=== PATIENT | female | born 1995 | race Caucasian/White ===

== ENCOUNTER 2019-09-01 11:26 | Observation (INO) | payer OTHER, SELFPAY ==
--- NOTE | ~2019-09-01 | US_ITS ---
EXAMINATION: US OB follow up EXAM DATE: 09/01/2019 13:05 INDICATION: Cramping, vaginal bleeding. 2nd trimester. TECHNIQUE: Pelvic obstetrical transabdominal sonogram was performed by a technologist. There are mu ltiple grayscale and Doppler images available for interpretation. There are no earlier studies of th is gestation for comparison. FINDINGS: There is a single fetus identified in variable presentation with a heart rate of 148 beats per minute. The placenta is located in the anterior position. There is no sonographic evidence of re troplacental hemorrhage identified. Placental margin to internal cervical os distance is 4.1 cm. Ther e is subjectively expected amount of amniotic fluid. Along the inner surface of the placenta there is hypoechoic oblong-shaped region with several septati ons, most likely a venous vick. This measures 3.2 x 2.6 x 4.0 cm. BIOMETRIC DATA: Biparietal diameter (BPD): 4.1cm ----------------> 18 weeks 3 days. Head circumference (HC): 15.0 cm ----------------> 18 weeks 0 days. Abdominal circumference (AC): 12.6 cm ----------> 18 weeks 1 day. Femur length (FL): 2.6 cm --------------------------> 17 weeks 6 days. These measurements are concordant. HC/AC ratio is 1.19 (The 5th -- 95th percentile range is 1.08-1.27. IMPRESSION: 1. Single fetus in variable presentation with heart rate 148 beats per minute. 2. Hypoechoic region along the inner surface of placenta distorting its contour, most likely a venou s vick. Reviewed, dictated and finalized at location B. IMPRESSION: 1. Single fetus in variable presentation with heart rate 148 beats per minute. 2. Hypoechoic region along the inner surface of placenta distorting its contou r, most likely a venous vick.
[2019-09-01 12:03] VITALS: BP 105/62; PULSE 81
--- NOTE | 2019-09-01 12:17 | OBADM ---
This patient, Clarice Jerez, admitted to the OB room OB Post 116 for observation. Patient/family oriented to hospital policies and general routines including ID bracelet, bed and alarms, visiting hours, pain management, procedures, bathroom and other care routines, personal items, smoking policy, room service/diet, and visiting hours. Patient/Family are encouraged to report perceived risks to care and to ask questions if they do not understand what they are told or what they should do.
[2019-09-01 14:51] LABS: Add Urine Microscopic? NO; Appearance Urine Clear (Clear); Bilirubin Urine Negative (Negative); Blood Urine Negative (Negative); Color Urine Straw (Yellow); Glucose Urine UA Negative (Negative); Ketones Urine Negative (Negative); Leukocyte Esterase Ur Negative LEU/UL (Negative); Nitrate Urine Negative (Negative); Protein Urine Negative (Negative); Specific Grav Ur 1.015 (1.001-1.035); Urobilinogen Urine Negative mg/dL (<2.0)
--- NOTE | 2019-09-25 07:12 | P.DS_ITS ---
OB - DS: Summary OB Procedures : None OB Procedures Intrapartum: Spontaneous Vag Delivery OB Procedures: : None Time Spent with Patient Time attestation: Total time spent providing and/or coordinating discharge services: Discharge Plan Discharge Attending physician on discharge: Sung Dunn Discharging Clinician: Sung Dunn Patient Disposition: Home, Self-Care Activity: as tolerated Diet: regular Discharge Instructions: OB ANTEPARTUM DISCHARGE INSTRUCTIONS This information is given to help you properly care for yourself at home after your discharge from the hospital. Follow these instructions until your doctor tells you otherwise. DIET: Eat Three Well Balanced Meals per Day Drink at Least Eight 8-Ounce Glasses of Caffeine-Free Beverages Daily ACTIVITY: As Tolerated Additional Activity Instructions: RETURN TO LABOR AND DELIVERY IF YOU HAVE: Any Change In Baby's Normal Movement Pattern Any Leakage of Fluid More than 6 Contractions in an Hour Vaginal Bleeding Warning Signs of Pre-term Labor as per Handout Additional Reasons to Return to Labor and Delivery: Contractions may feel like abdominal pain, tightening, cramping, pressure, back ache, or thigh ache. OTHER INSTRUCTIONS: FOLLOW-UP CARE: Keep Next Scheduled Appointment To see in/on Valuables released to patient or family? N/A Medications from home returned to patient? N/A I Acknowledge Receipt of and Understand the Above Instructions IF YOU HAVE ANY QUESTIONS REGARDING THESE INSTRUCTIONS, PLEASE CALL [phone]. IF PROBLEMS ARISE, CALL YOUR PROVIDER. IF EMERGENCY CARE IS NEEDED, [facility] EMERGENCY ROOM IS AVAILABLE 24 HOURS A DAY. Stand Alone Forms: General Discharge Information Follow-up/Referrals: Sung Dunn MD [Physician] - Date of admission: 09/01/19 11:26 Primary Care Provider: CheliJayesh Admitting Provider: Sung Dunn Discharge Date/Time: 09/01/19 14:25 Attending physician on admission: Sung Dunn
--- NOTE | 2019-09-25 07:13 | P.PNOB_ITS ---
OB - Triage/Final Diagnosis Visit Information Reason for evaluation: threatened labor Evaluation Laboratory results: Laboratory Tests 09/01/19 14:20 Urine Color Straw Urine Appearance Clear Urine pH 6.0 Ur Specific [place] 1.015 Urine Protein Negative Urine Glucose (UA) Negative Urine Ketones Negative Ur Blood (Man) Negative Urine Nitrate Negative Urine Bilirubin Negative Urine Urobilinogen Negative Leukocyte Esterase Rfl Negative
== END 2019-09-01 14:25 | disposition home or self-care (01) ==
PROVIDERS: Admitting Provider Obstetrics & Gynecology; PCP Nurse Practitioner Family; Visit Provider Obstetrics & Gynecology
DX: O47.02 False labor before 37 completed weeks of gestation, second trimester (principal); Z3A.18 18 weeks gestation of pregnancy
CPT/HCPCS: 76816; 81003; G0378; G0379

== ENCOUNTER 2019-10-05 11:29 | Observation (INO) | payer OTHER, SELFPAY ==
[2019-10-05 12:02] VITALS: BP 105/64; PULSE 85; TEMP 37.3
[2019-10-05 12:05] VITALS: BMI 30.3
--- NOTE | 2019-10-05 12:05 | OBADM ---
This patient, Clarice Jerez, admitted to the OB room 113 at 1129 for observation for lower abdominal pressure/ cramping and back pain. Patient/family oriented to hospital policies and general routines including ID bracelet, bed and alarms, visiting hours, pain management, procedures, bathroom and other care routines, personal items, smoking policy, room service/diet, and visiting hours. Patient/Family are encouraged to report perceived risks to care and to ask questions if they do not understand what they are told or what they should do.
[2019-10-05 12:48] VITALS: TEMP 37.6
[2019-10-05 13:01] VITALS: BP 103/79; PULSE 95
[2019-10-05 13:01] LABS: Add Urine Microscopic? NO; Appearance Urine Clear (Clear); Bilirubin Urine Negative (Negative); Blood Urine Negative (Negative); Color Urine Straw (Yellow); Glucose Urine UA Negative (Negative); Ketones Urine Negative (Negative); Leukocyte Esterase Ur Negative LEU/UL (Negative); Nitrate Urine Negative (Negative); Protein Urine Negative (Negative); Specific Grav Ur 1.013 (1.001-1.035); Urobilinogen Urine Negative mg/dL (<2.0)
[2019-10-05 14:21] VITALS: RESP 18; TEMP 37.8
--- NOTE | 2019-10-12 12:41 | PM.OBTRLD ---
OB - Triage/Final Diagnosis Evaluation Laboratory results: Laboratory Tests 10/05/19 12:47 Urine Color Straw Urine Appearance Clear Urine pH 7.0 Ur Specific [place] 1.013 Urine Protein Negative Urine Glucose (UA) Negative Urine Ketones Negative Ur Blood (Man) Negative Urine Nitrate Negative Urine Bilirubin Negative Urine Urobilinogen Negative Leukocyte Esterase Rfl Negative Final Diagnosis (1) Abdominal pain affecting : Code(s): O26.899 - Other specified related conditions, unspecified trimester; R10.9 - Unspecified abdominal pain Status: Acute
== END 2019-10-05 15:25 | disposition home or self-care (01) ==
PROVIDERS: Admitting Provider Obstetrics & Gynecology; PCP Nurse Practitioner Family; Visit Provider Obstetrics & Gynecology
DX: O26.892 Other specified pregnancy related conditions, second trimester (principal); R10.2 Pelvic and perineal pain; M54.9 Dorsalgia, unspecified; Z3A.23 23 weeks gestation of pregnancy
CPT/HCPCS: 81003; G0378; G0379

== ENCOUNTER 2019-11-05 21:53 | Observation (INO) | payer OTHER, SELFPAY ==
[2019-11-05] VITALS (9 sets, daily range): BP systolic 93–119; BP diastolic 43–57; PULSE 80–97; TEMP 36.5; BMI 32.1
[2019-11-06] VITALS (12 sets, daily range): BP systolic 82–119; BP diastolic 40–66; PULSE 80–125; O2SAT 100
[2019-11-06] MEDS: TERBUTALINE SULFATE 1 MG/ML VIAL 0.25 MG SUB-Q (00:42)
[2019-11-06 00:58] LABS: Add Urine Microscopic? NO; Appearance Urine Clear (Clear); Bilirubin Urine Negative (Negative); Blood Urine Negative (Negative); Color Urine Straw (Yellow); Glucose Urine UA Negative (Negative); Ketones Urine Negative (Negative); Leukocyte Esterase Ur Negative LEU/UL (NEGATIVE); Nitrate Urine Negative (Negative); Protein Urine Negative (Negative); Urobilinogen Urine Negative mg/dL (<2.0)
--- NOTE | 2019-11-06 03:50 | OBADM ---
This patient, Clarice Jerez, admitted to the OB room OB Post 115 for observation. Patient/family oriented to hospital policies and general routines including ID bracelet, bed and alarms, visiting hours, pain management, procedures, bathroom and other care routines, personal items, smoking policy, room service/diet, and visiting hours. Patient/Family are encouraged to report perceived risks to care and to ask questions if they do not understand what they are told or what they should do.
--- NOTE | 2019-11-09 10:39 | P.PNOB_ITS ---
OB - Triage/Final Diagnosis Visit Information Reason for evaluation: threatened labor Evaluation Laboratory results: Laboratory Tests 11/06/19 00:48 Urine Color Straw Urine Appearance Clear Urine pH 7.0 Ur Specific [place] 1.010 Urine Protein Negative Urine Glucose (UA) Negative Urine Ketones Negative Ur Blood (Man) Negative Urine Nitrate Negative Urine Bilirubin Negative Urine Urobilinogen Negative Ur Leukocyte Esterase Negative
== END 2019-11-06 01:55 | disposition home or self-care (01) ==
PROVIDERS: Admitting Provider Obstetrics & Gynecology; PCP Nurse Practitioner Family; Visit Provider Obstetrics & Gynecology
DX: O47.02 False labor before 37 completed weeks of gestation, second trimester (principal); Z3A.27 27 weeks gestation of pregnancy
CPT/HCPCS: 81003; 87086; 96372; G0378; G0379; J3105

== ENCOUNTER 2019-11-29 21:24 | Outpatient (CLI) | payer OTHER, SELFPAY ==
[2019-11-29 21:33] VITALS: BP 115/65; PULSE 93
--- NOTE | 2019-11-30 13:31 | PM.OBTRLD ---
OB - Triage/Final Diagnosis Evaluation Vital signs: Vital Signs - 24 hr 11/29/19 21:33 Pulse Rate 93 Blood Pressure 115/65 Final Diagnosis (1) Fall (on) (from) other stairs and steps, initial encounter: Code(s): W10.8XXA - Fall (on) (from) other stairs and steps, initial encounter Status: Acute
== END 2019-11-29 22:09 | disposition home or self-care (01) ==
LOC: ANHOBPP 21:39 → ANHOBOP 12-01 09:10 → ANHOBPP 12-01 09:11
PROVIDERS: PCP Nurse Practitioner Family; Visit Provider Obstetrics & Gynecology
DX: O13.9 Gestational [pregnancy-induced] hypertension without significant proteinuria, unspecified trimester (principal); W10.8XXA Fall (on) (from) other stairs and steps, initial encounter
CPT/HCPCS: 59025; 99199; G0378; G0379

== ENCOUNTER 2019-12-26 13:59 | Observation (INO) | payer OTHER, SELFPAY ==
--- NOTE | 2019-12-26 15:59 | OBADM ---
This patient, Clarice Jerez, admitted to the OB room OB Post 116 for observation. Patient/family oriented to hospital policies and general routines including ID bracelet, bed and alarms, visiting hours, pain management, procedures, bathroom and other care routines, personal items, smoking policy, room service/diet, call light, and visiting hours. Patient/Family are encouraged to report perceived risks to care and to ask questions if they do not understand what they are told or what they should do.
--- NOTE | 2020-01-02 07:28 | PM.OBTRLD ---
OB - Triage/Final Diagnosis Visit Information Reason for evaluation: threatened labor
--- NOTE | 2020-01-03 12:31 | PM.OBTRLD ---
OB - Triage/Final Diagnosis Visit Information Reason for evaluation: threatened labor
== END 2019-12-26 15:45 | disposition home or self-care (01) ==
PROVIDERS: Admitting Provider Obstetrics & Gynecology; PCP Nurse Practitioner Family; Visit Provider Obstetrics & Gynecology
DX: O47.03 False labor before 37 completed weeks of gestation, third trimester (principal); Z3A.34 34 weeks gestation of pregnancy
CPT/HCPCS: 84112; G0378; G0379

== ENCOUNTER 2019-12-26 21:20 | Observation (INO) | payer OTHER, SELFPAY ==
--- NOTE | 2019-12-26 21:20 | OBADM ---
This patient, Clarice Jerez, admitted to the OB room Labor/Delivery/Recovery 106 for observation. Patient/family oriented to hospital policies and general routines including ID bracelet, bed and alarms, visiting hours, pain management, procedures, bathroom and other care routines, personal items, smoking policy, room service/diet, and visiting hours. Patient/Family are encouraged to report perceived risks to care and to ask questions if they do not understand what they are told or what they should do.
[2019-12-26 22:32] VITALS: BMI 33.5
[2019-12-26] MEDS: TERBUTALINE SULFATE 1 MG/ML VIAL 0.25 MG SUB-Q (23:09)
--- NOTE | 2019-12-30 08:55 | PM.OBTRLD ---
OB - Triage/Final Diagnosis Visit Information Reason for evaluation: threatened labor
--- NOTE | 2019-12-30 08:57 | PM.OBTRLD ---
OB - Triage/Final Diagnosis Visit Information Reason for evaluation: threatened labor
== END 2019-12-27 00:23 | disposition home or self-care (01) ==
PROVIDERS: Admitting Provider Obstetrics & Gynecology; PCP Nurse Practitioner Family; Visit Provider Obstetrics & Gynecology
DX: O47.9 False labor, unspecified (principal); Z3A.00 Weeks of gestation of pregnancy not specified
CPT/HCPCS: 96372; G0378; G0379; J3105

== ENCOUNTER 2020-01-24 04:40 | Inpatient (IN) | payer OTHER, SELFPAY ==
[2020-01-24] VITALS (123 sets, daily range): BP systolic 82–135; BP diastolic 39–102; PULSE 67–132; RESP 16–20; TEMP 36.4–37.4; O2SAT 98–100; BMI 33.7
--- NOTE | 2020-01-24 05:19 | LDADM ---
This patient, Clarice Jerez, was admitted to Labor/Delivery/Recovery 102 on 01/24/20 at 04:40. Plans for labor, pain management and were discussed with patient. Patient/family oriented to hospital policies and general routines including ID bracelet, bed and alarms, visiting hours, pain management, procedures, bathroom and other care routines, personal items, smoking policy, room service/diet and guest tray routines, infant security routines, and visiting hours. Patient/Family are encouraged to report perceived risks to care and to ask questions if they do not understand what they are told or what they should do. See OBIX for further documentation.
[2020-01-24 05:24] LABS: Basophils Percent Auto 0.5 % (0.2-1.2); Eosinophils Absolute Auto 0.1 K/mm3 (0-0.3); Eosinophils Percent Auto 1.7 % (0-4.4); Hematocrit 28.7 % (37.0-47.0); Hemoglobin 8.7 g/dL (12.0-15.0); Immature Granulocyte Absolute 0.07 K/mm3 (0.00-0.031); Immature Granulocyte Percent A 0.8 % (0-0.5); Lymphocytes Absolute Auto 2.88 K/mm3 (0.9-3.2); Lymphocytes Percent Auto 34.1 % (18.3-44.2); Mean Corpuscular HGB Conc 30.3 g/dl (32-36); Mean Corpuscular Hemoglobin 23.7 pg (26-34); Mean Corpuscular Volume 78.2 fl (80-100); Mean Platelet Volume 10.1 fl (7.4-10.4); Monocytes Absolute Auto 0.8 K/mm3 (0.1-0.6); Monocytes Percent Auto 9.7 % (2.6-8.5); Neutrophils Absolute Auto 4.5 K/mm3 (1.3-6.7); Neutrophils Percent Auto 53.2 % (45.5-73.1); Platelet Count Result 238 k/mm3 (150-375); Red Blood Count 3.67 M/mm3 (4.2-5.4); Red Cell Distribution Width 15.3 % (11.5-14.5); White Blood Count 8.4 K/mm3 (4.5-10.0)
[2020-01-24] MEDS: OXYTOCIN 30 UNITS/NS 500 ML 30 UNITS/500 ML BAG IV CONT (05:29)
[2020-01-24] MEDS: LACTATED RINGERS 1,000 ML 125 ML IV CONT ×2 (05:30→07:57)
[2020-01-24 06:03] LABS: Rapid Plasma Reagin Non-Reactive (NonReactive)
--- NOTE | 2020-01-24 06:36 | P.PNAN_ITS ---
Anes - Eval Pre Procedure Procedure: Labor epidural Date/Time: 01/24/20 06:36 Surgeon: Mona Preop Diagnosis: pain during labor Pre Op Diagnosis: Induction of Labor Patient Data Age: 24 Gender: F Height: 1.55 m Weight: 81 kg Last Vital Signs Temp 36.7 C 01/24/20 05:30 Pulse 97 01/24/20 05:37 BP 115/72 01/24/20 05:37 Allergies Allergy/AdvReac Type Severity Reaction Status Date / Time metoclopramide AdvReac Intermediate Confusion,H Verified 10/05/19 11:55 ALLUCINATIO NS Home Medications Medication Instructions Recorded Confirmed Type Gummies 2 tablet PO DAILY 10/05/19 01/24/20 History albuterol sulfate [Ventolin HFA] 2 puff INHALATION Q4H PRN 10/05/19 01/24/20 History ondansetron HCl 4 mg PO Q6H PRN 10/05/19 01/24/20 History Laboratory Tests 01/24/20 01/24/20 01/24/20 05:15 05:15 05:15 WBC 8.4 K/mm3 K/mm3 (4.5-10.0) RBC 3.67 M/mm3 L M/mm3 (4.2-5.4) Hgb 8.7 g/dL L g/dL (12.0-15.0) Hct 28.7 % L % (37.0-47.0) MCV 78.2 fl L fl (80-100) MCH 23.7 pg L pg (26-34) MCHC 30.3 g/dl L g/dl (32-36) RDW 15.3 % H % (11.5-14.5) Plt Count 238 k/mm3 k/mm3 (150-375) MPV 10.1 fl fl (7.4-10.4) Immature Gran % (Auto) 0.8 % H % (0-0.5) Neut % (Auto) 53.2 % % (45.5-73.1) Lymph % (Auto) 34.1 % % (18.3-44.2) [place] % (Auto) 9.7 % H % (2.6-8.5) Eos % (Auto) 1.7 % % (0-4.4) Baso % (Auto) 0.5 % % (0.2-1.2) Lymph # (Auto) 2.88 K/mm3 K/mm3 (0.9-3.2) [place] # (Auto) 0.8 K/mm3 H K/mm3 (0.1-0.6) Eos # (Auto) 0.1 K/mm3 K/mm3 (0-0.3) Baso # (Auto) 0.0 K/mm3 K/mm3 (0.0-0.1) Abs Immat Gran (auto) 0.07 K/mm3 H K/mm3 (0.00-0.031) Absolute Neuts (auto) 4.5 K/mm3 K/mm3 (1.3-6.7) Absolute Nucleated RBC 0.0 K/mm3 K/mm3 (0.0-0.012) Nucleated RBC % 0.0 % % (0.0-0.2) RPR Non-reactive (NonReactive) Blood Type B Positive Antibody Screen Negative Patient hx anesthesia problems: none Family hx anesthesia problems: none [facility] Past Medical History Medical History (Updated 01/24/20 @ 06:37 by Cynthia Burch, PRANAV) Asthma Obesity (BMI 30-39.9) Social History Social History Smoking status: Never smoker Substance use: never Gender identity (if verbalized by the patient): Female Spiritual care concerns: No Exam Day of Procedure 01/24/20 06:36
[2020-01-24] MEDS: ONDANSETRON INJ 4 MG/2 ML VIAL IV PUSH (08:54)
[2020-01-24] MEDS: SODIUM CHLORIDE 0.9% IV 300 ML 600 ML I-UTERINE (10:11)
--- NOTE | 2020-01-24 13:43 | WPDHPUPDATE1 ---
History and Physical Update Update Date/Time: 01/24/20 13:43 History and Physical has been reviewed, including an updated exam of the patient. There are NO changes in the patient's condition. Risks, benefits, and alternatives have been discussed and questions answered. Patient agrees to proceed with procedure.
--- NOTE | 2020-01-24 13:43 | WPDOBADMIT ---
Obstetrics - Admit Note Admission Note: record reviewed. No pertinent additions to the history and/or any subsequent changes in the physical findings that are not consistent with the expected course of the were found. Additions to the history and/or subsequent changes in the physical findings follow. None.
--- NOTE | 2020-01-24 13:43 | PM.OBPRVD ---
OB - Delivery Note Procedure Route of delivery: Laceration Description: Superficial Delivery repair: chromic Specimen: No Estimated blood loss (mL): 200 Anesthesia type: Epidural Disposition: floor Narrative: Patient prepped and draped in the usual manner for this procedure. Maternal expulsive efforts delivered vertex and nuchal cord was reduced. The rest phase the without difficulty the cord was clamped and cut and the placenta delivered spontaneously. Cervix vagina vulva were inspected with small laceration noted in the vaginal area. This was approximately using a [id number] suture of 2 0 chromic. Uterus was well contracted and there was minimal bleeding. At this point the procedure was considered terminated immediate postop condition of mother and baby were both excellent[. [place] Baby Weeks of gestation at delivery: 39 Weight (pounds): 7 Weight (ounces): 3 score one minute: 9 score five minutes: 9
[2020-01-24] MEDS: OXYTOCIN 30 UNITS/NS 500 ML 30 UNITS/500 ML BAG 125 UNITS IV CONT (13:54)
--- NOTE | 2020-01-24 16:25 | PC.NURSE ---
Patient transferred to post room #292 per wheelchair. Support person present. Oriented to unit, room, information board, rooming in, admission packet and security measures. Patient verbalizes understanding.
[2020-01-24] MEDS: DOCUSATE SODIUM 100 MG CAPSULE PO (16:46)
[2020-01-24] MEDS: IBUPROFEN 600 MG TABLET PO (16:46)
[2020-01-24] MEDS: BENZOCAINE 20% AER SPR (*SP) 56 GM CAN 1 SPRAY TOPICAL (16:47)
[2020-01-24] MEDS: WITCH HAZEL 40 PADS 1 PAD TOPICAL (16:47)
[2020-01-24] MEDS: POLYSACCHARIDE IRON COMPLEX 150 MG CAPSULE PO (21:09)
[2020-01-24] MEDS: ACETAMINOPHEN 325 MG TABLET 650 MG PO (22:03)
[2020-01-25] MEDS: TETANUS,DIPHTHERIA,AC PERTUSSIS ADULT (0.5 ML) BOOSTRIX IM (04:31)
[2020-01-25] MEDS: IBUPROFEN 600 MG TABLET PO ×3 (04:37→17:27)
[2020-01-25 05:28] LABS: Hematocrit 26.4 % (37.0-47.0); Hemoglobin 8.2 g/dL (12.0-15.0)
--- NOTE | 2020-01-25 08:00 | WPDANLDPN2 ---
Anes-Prog Note L&D Date/Time: 01/25/20 08:00 Comfortable throughout: labor and delivery Neuraxial method: epidural Epidural/Spinal procedure site: clean & non-tender Neuro status: Neuro function grossly intact. Cardiovascular status: normal Respiratory status: normal Airway patency: baseline Mental status: baseline Post-Op hydration status: normal Vital Signs: Last Vital Signs Temp 36.8 C 01/24/20 20:00 Pulse 76 01/24/20 20:00 Resp 16 01/24/20 20:00 BP 114/63 01/24/20 20:00 Pulse Ox 100 01/24/20 20:00 Pain score (VAS): 0 I/O: Intake & Output 01/24/20 01/25/20 01/25/20 23:59 07:59 15:59 Output Total 120 Balance -120 Post-procedural complaints: none Patient feedback: Patient satisfied with anesthetic care.
[2020-01-25 08:35] VITALS: BP 126/70; PULSE 77; RESP 18; TEMP 36.8; O2SAT 100
--- NOTE | 2020-01-25 10:41 | PM.OBDSVD ---
DS: Admitting Diagnosis Admitting Diagnosis Admitting Diagnosis: Induction of Labor OB - DS: Summary OB Procedures : None OB Procedures Intrapartum: Spontaneous Vag Delivery OB Procedures: : None Time Spent with Patient Time attestation: Total time spent providing and/or coordinating discharge services: DS: Data Data Completed and Pending Labs on day of discharge: Labs from last 24 hours 01/25/20 04:18 Hgb 8.2 L Hct 26.4 L Discharge Plan Discharge Discharging Clinician: Sung Dunn Anticipated Discharge Date/Time: 01/26/20 10:41 Patient Disposition: Home, Self-Care Activity: as tolerated Diet: as tolerated Patient Instructions: Antibiotic Form Stand Alone Forms: General Discharge Information Follow-up/Referrals: Sung Dunn MD [Physician] - 3 Weeks Discharge Medications: New ibuprofen 600 mg Tablet 600 mg PO Q6H PRN (Reason: Cramping) Qty: 20 RF: 0 Continued albuterol sulfate [Ventolin HFA] 90 mcg/actuation HFA aerosol inhaler 2 puff INHALATION Q4H PRN (Reason: Shortness Of Breath) RF: 0 Gummies 400 mcg-35 mg- 25 mg-5 mg Tablet,Chewable 2 tablet PO DAILY RF: 0 Discontinued ondansetron HCl 4 mg tablet 4 mg PO Q6H PRN (Reason: Nausea) RF: 0 Date of admission: 01/24/20 04:40 Primary Care Provider: DougJayesh Admitting Provider: Sung Dunn Attending physician on admission: Sung Dunn Condition: Stable
[2020-01-25] MEDS: POLYSACCHARIDE IRON COMPLEX 150 MG CAPSULE PO ×2 (10:53→17:27)
[2020-01-25] MEDS: DOCUSATE SODIUM 100 MG CAPSULE PO ×2 (10:53→17:27)
[2020-01-25 20:00] VITALS: BP 112/71; PULSE 98; RESP 16; TEMP 36.6; O2SAT 100
[2020-01-25] MEDS: ACETAMINOPHEN 325 MG TABLET 650 MG PO (22:29)
[2020-01-26 07:40] VITALS: BP 107/69; PULSE 67; RESP 16; TEMP 36.9; O2SAT 98
[2020-01-26] MEDS: POLYSACCHARIDE IRON COMPLEX 150 MG CAPSULE PO (09:06)
[2020-01-26] MEDS: WITCH HAZEL 40 PADS 1 PAD TOPICAL (09:07)
[2020-01-26] MEDS: DOCUSATE SODIUM 100 MG CAPSULE PO (09:07)
[2020-01-26] MEDS: IBUPROFEN 600 MG TABLET PO (09:07)
--- NOTE | 2020-01-26 14:06 | PC.NURSE ---
1100 Parents state they have read through mother and baby's discharge papers. Papers reviewed with them and signed.
--- NOTE | 2020-01-27 17:12 | P.DS_ITS ---
DS: Admitting Diagnosis Admitting Diagnosis Admitting Diagnosis: Induction of Labor OB - DS: Summary OB Procedures : None OB Procedures Intrapartum: Spontaneous Vag Delivery OB Procedures: : None Time Spent with Patient Time attestation: Total time spent providing and/or coordinating discharge services: Discharge Plan Discharge Discharging Clinician: Sung Dunn Anticipated Discharge Date/Time: 01/26/20 10:41 Patient Disposition: Home, Self-Care Activity: as tolerated Diet: as tolerated Discharge Instructions: Education: Mom and Baby Guide Given to: Mother Follow-Up: Call your delivering provider's office for an appointment to be seen in: 3 weeks Mom and baby should come to the [facility] for the follow-up appointment. Appointment Date/Time: January 29, 2020 at 11:00 am What to expect at your follow-up visit: Blood Pressure Check Physical Assessment Call [phone] if you are unable to keep your appointment time. BREAST CARE: * Wear a snug supportive bra. * For engorgement discomfort: Bottle Feeding: * May apply ice packs EPISIOTOMY/PERINEAL CARE: * Until bleeding stops, use your jensen bottle after urinating * Change your pad frequently throughout the day * You may take sitz baths several times a day (fill your bathtub with warm water and soak for 20 minutes.) Do NOT bathe in the water * No tub baths until seen by your physician - You may shower ACTIVITY: * Rest as much as possible. * Do not exercise or lift anything heavier than your baby (such as laundry or other children.) * Avoid stairs or driving as much as possible. * Do not put anything into the vagina. No douching, tampons, or sexual activity until seen by physician. NOTIFY PHYSICIAN IF YOU HAVE ANY QUESTIONS OR IF ANY OF THE FOLLOWING SYMPTOMS OCCUR: * If your episiotomy or incision becomes red, swollen, or more painful than what you have experienced in the hospital. * If your vaginal bleeding becomes foul smelling. * If your vaginal bleeding becomes more heavy than a period or if your bleeding changes from pink to bright red. However, you may pass an occasional walnut- sized clot once or twice for the first week . * If you experience a sharp, shooting pain in you calves. * If you discover a hard, reddened area on your breast or if you experience flu- like symptoms. * Temperature of 100.4 or higher DIET: * Eat regular, well-balanced meals. * Drink plenty of fluids daily. If , drink to thirst. Stand Alone Forms: General Discharge Information Follow-up/Referrals: Sung Dunn MD [Physician] - 3 Weeks Discharge Medications: New ibuprofen 600 mg Tablet 600 mg PO Q6H PRN (Reason: Cramping) Qty: 20 RF: 0 Continued albuterol sulfate [Ventolin HFA] 90 mcg/actuation HFA aerosol inhaler 2 puff INHALATION Q4H PRN (Reason: Shortness Of Breath) RF: 0 Gummies 400 mcg-35 mg- 25 mg-5 mg Tablet,Chewable 2 tablet PO DAILY RF: 0 Discontinued ondansetron HCl 4 mg tablet 4 mg PO Q6H PRN (Reason: Nausea) RF: 0 Date of admission: 01/24/20 04:40 Primary Care Provider: DougJayesh Admitting Provider: Sung Dunn Attending physician on admission: Sung Dunn Condition: Stable
[2020-01-29 11:21] VITALS: BP 126/65; PULSE 87; RESP 20; TEMP 37; O2SAT 100
== END 2020-01-26 11:45 | disposition home or self-care (01) | DRG 807 ==
LOC: ANHLDR 04:45 → ANHOB2 16:31
PROVIDERS: Admitting Provider Obstetrics & Gynecology; PCP Nurse Practitioner Family; Visit Provider Obstetrics & Gynecology
DX: O69.81X0 Labor and delivery complicated by cord around neck, without compression, not applicable or unspecified (principal); Z37.0 Single live birth; O99.214 Obesity complicating childbirth; O70.0 First degree perineal laceration during delivery; E66.9 Obesity, unspecified; O76 Abnormality in fetal heart rate and rhythm complicating labor and delivery; Z3A.39 39 weeks gestation of pregnancy
CPT/HCPCS: 36415; 85014; 85018; 85025; 86592; 86850; 86900; 86901; 90715; A9270; J2405; J2590; J2795; J7030; J7120

== ENCOUNTER 2020-09-02 18:21 | Emergency (ER) | payer OTHER, SELFPAY ==
[2020-09-02 18:29] VITALS: BP 135/71; PULSE 80; RESP 14; TEMP 36.7; O2SAT 100
--- NOTE | 2020-09-02 19:56 | ED.GENADULT ---
HPI - General Adult General Chief complaint: Urogenital-Female Stated complaint: Abdominal and Back pain Time Seen by Provider: 09/02/20 19:56 Source: patient, RN notes reviewed and old records reviewed Mode of arrival: ambulatory Limitations: no limitations History of Present Illness HPI narrative: 24 year old female who presents to [facility] care with complaints of mid upper abdominal pain which radiates to the right upper abdomen and around to right flank region which started about 1400 today. Patient denies any burning or pain with urination, denies any urinary urgency,frequency, hesitancy or hematuria. Patient states that ahe has had some intermittent nausea but denies any emesis or any diarrhea. Patient states that pain is aggravated with eating or drinking. Onset (ago): day(s) (1) Severity scale (1-10): 3 Treatments prior to arrival: NSAID and other (TUMS) Related Data Home Medications Medication Instructions Recorded Confirmed atorvastatin 20 mg PO DAILY 09/02/20 09/02/20 bupropion HCl 150 mg PO QAM 09/02/20 09/02/20 norelgestromin-ethin.estradiol 1 patch TRANSDERMAL WEEKLY 09/02/20 09/02/20 [Xulane] Allergies Allergy/AdvReac Type Severity Reaction Status Date / Time metoclopramide AdvReac Intermediate Confusion,H Verified 09/02/20 18:37 VALERY SCHULTE Review of Systems Review of Systems: Narrative: CONSTITUTIONAL: Denies fever, chills, or sweats. EYES: Denies visual changes, redness, or discharge. ENT: Denies rhinorrhea, congestion, sore throat, or otalgia. CARDIOVASCULAR: Denies chest pain, palpitations, or edema. RESPIRATORY: Denies cough or dyspnea. GASTROINTESTINAL: Voices mid upper abdominal pain radiates to right upper abdomen and around to right flank area with some intermittent nausea no vomiting or diarrhea GENITOURINARY: Denies dysuria or hematuria. SKIN: Denies rash or itching. MUSCULOSKELETAL: Denies lower back pain some right flank discomfort,no joint pain, or myalgia. NEUROLOGIC: Denies headache, numbness, or weakness. PSYCHIATRIC Positive for history of anxiety or depression. All systems reviewed & are unremarkable except as noted in HPI and below PMFSH Past Medical History Medical History (Updated 09/04/20 @ 21:05 by Mohini Angela NP) Asthma Elevated cholesterol IBS (irritable bowel syndrome) Obesity (BMI 30-39.9) Surgical History Surgical History (Updated 09/04/20 @ 21:06 by Mohini Angela NP) History of placement of ear tubes Family History Family History (Updated 09/04/20 @ 21:08 by Mohini Angela NP) Other No significant family history Social History Social History (Updated 09/04/20 @ 21:08 by Mohini Angela NP) Smoking status: Never smoker Alcohol intake: unknown Substance use: never Gender identity (if verbalized by the patient): Female Spiritual care concerns: No Comments At time of signature, agree with nursing past medical, surgical, social and family history. There is no relevant family history pertinent to the presenting complaint Exam Narrative: Exam Narrative: GENERAL: Well-appearing, well-nourished,obesity and in no acute distress. HEAD: Normocephalic, atraumatic. EYES: PERRLA and EOMI. ENT: Nares clear, no rhinorrhea or epistaxis. Mucous membranes moist.TM's normal with good light reflex, throat pink with no lesions or exudates no tonsil enlargement. NECK: Supple. no lymphadenopathy CHEST: Clear to auscultation. No respiratory distress.SAO2 100% on room air HEART: Regular rate and rhythm. No murmur heard. Normal peripheral pulses. ABDOMEN: Soft, tender to right upper abdomen on palpation, nondistended, normal active bowel sounds.no acute flank pain on examination. denies any burning or frequency of urination EXTREMITIES: Normal range of motion. No edema. SKIN: Warm, dry, no rash. NEURO: No focal deficits. Alert and oriented x3. Course Vital Signs Vital signs: Vital Signs Temperature 36.7 C 09/02/20 18:29 Pulse
== END 2020-09-02 20:13 | disposition home or self-care (01) ==
PROVIDERS: Emergency Provider Registered Nurse; PCP Nurse Practitioner Family
DX: R10.11 Right upper quadrant pain (principal); J45.909 Unspecified asthma, uncomplicated; E78.00 Pure hypercholesterolemia, unspecified; E66.9 Obesity, unspecified; Z68.30 Body mass index [BMI] 30.0-30.9, adult
CPT/HCPCS: 81003; 99213; G0463

== ENCOUNTER 2021-04-11 18:21 | Emergency (ER) | payer OTHER, SELFPAY ==
--- NOTE | 2021-04-11 18:22 | ED.URI ---
HPI - URI/Sore Throat General Chief Complaint: Upper Respiratory Infection Stated Complaint: fever cough aches Time Seen by Provider: 04/11/21 18:23 Source: patient and RN notes reviewed History of Present Illness HPI Narrative: Patient is a 24-year-old female who presents the urgent care with complaints of fever, cough, body aches, sore throat, headache and runny nose. Patient states her symptoms started 3 days ago and she has been taking Tylenol and DayQuil. Patient states her has also been symptomatic. Patient has not had a Covid vaccine but denies any recent exposure. No other complaints. No acute distress noted. Patient read the plan of care. Some parts of this dictation were generated by voice recognition software and may contain typographical and/or grammatical inaccuracies. Related Data Home Medications Medication Instructions Recorded Confirmed bupropion HCl 150 mg PO QAM 09/02/20 04/11/21 norelgestromin-ethin.estradiol 1 patch TRANSDERMAL WEEKLY 09/02/20 04/11/21 [Xulane] hydroxyzine HCl 25 mg PO TID 04/11/21 04/11/21 topiramate 50 mg PO DAILY 04/11/21 04/11/21 Allergies Allergy/AdvReac Type Severity Reaction Status Date / Time metoclopramide AdvReac Intermediate Confusion,H Verified 04/11/21 18:35 VALERY SCHULTE Review of Systems Review of Systems: CONSTITUTIONAL: Reports of fever, chills, fatigue EYES: Denies visual changes, redness, or discharge. ENT: Reports of congestion, rhinorrhea, sore throat CARDIOVASCULAR: Denies chest pain, palpitations, or edema. RESPIRATORY: Reports of cough GASTROINTESTINAL: Denies abdominal pain, nausea, vomiting, or diarrhea. GENITOURINARY: Denies dysuria or hematuria. SKIN: Denies rash or itching. MUSCULOSKELETAL: Denies back pain, joint pain reports of body aches NEUROLOGIC: Denies headache, numbness, or weakness. All other systems reviewed are negative, except as documented in HPI. [facility] Past Medical History Medical History (Updated 04/11/21 @ 18:56 by NATALIA Alvarez) Asthma Elevated cholesterol IBS (irritable bowel syndrome) Obesity (BMI 30-39.9) Surgical History Surgical History (Updated 09/04/20 @ 21:06 by Mohini Angela NP) History of placement of ear tubes Family History Family History (Updated 09/04/20 @ 21:08 by Mohini Angela NP) Other No significant family history Social History Social History (Updated 09/04/20 @ 21:08 by Mohini Angela NP) Smoking status: Never smoker Alcohol intake: unknown Substance use: never Gender identity (if verbalized by the patient): Female Spiritual care concerns: No Comments At the time of my signature, I reviewed and agree with the nursing past medical, surgical, social, and family history. There is no relevant family history pertinent to the patient complaint. Exam Narrative: GENERAL: This is a well-nourished, well-developed patient. Reports of fatigue HEAD: normocephalic, atraumatic. EYES: PERRL. Sclera clear/white. Vision is grossly intact. EARS: External ears normal, auditory canals clear and without drainage, TMs normal without perforation. Hearing grossly intact. NOSE: External nose normal with no obvious nasal discharge, nares without redness, no rhinorrhea. THROAT: Mucous membranes moist, mild erythema in the posterior pharynx with moderate postnasal drainage NECK: Neck supple, non-tender without lymphadenopathy CARDIOVASCULAR: Regular rate and rhythm without murmurs, gallops, or rubs. RESPIRATORY: Clear to auscultation. Breath sounds equal bilaterally. No wheezes, rales, or rhonchi. SKIN: Appears flushed. Warm, intact with no suspicious lesions or rash, good texture and turgor. NEURO: awake, alert, and oriented to person, place and time. There were no obvious focal neurologic abnormalities. EXTREMITIES: No clubbing, cyanosis, or edema. Course Course Level of Care: Express Care Visit Vital Signs Vital signs: Vital Signs Temperature
[2021-04-11 18:26] VITALS: BP 122/91; PULSE 89; RESP 14; TEMP 36.1; O2SAT 100
== END 2021-04-11 19:01 | disposition home or self-care (01) ==
PROVIDERS: Emergency Provider Nurse Practitioner Family; PCP Nurse Practitioner Family
DX: U07.1 COVID-19 (principal); J45.909 Unspecified asthma, uncomplicated; E78.00 Pure hypercholesterolemia, unspecified; E66.9 Obesity, unspecified; Z68.29 Body mass index [BMI] 29.0-29.9, adult
CPT/HCPCS: 87426; 87804; 99213; C9803; G0463

== ENCOUNTER 2022-04-09 00:20 | Day surgery (SDC) | payer BC, SELFPAY ==
[2022-03-31 11:33] VITALS: BMI 30.2
--- NOTE | 2022-03-31 11:37 | PC.NURSE ---
Report to the Outpatient Waiting Room, entrance under the green pavilion located off [facility], at time 8:30 on date 04/09/22. Planned Procedure Time: 10:30. Time changes happen often and if your time is changed the preop area will call you the afternoon before. - You and your visitor will be asked to self-screen and do not enter if you have any COVID symptoms. - Only one visitor is requested with a max of two and NO children visitors are allowed at this time. - The patient visitor may be requested to leave or wait in car when not with patient due to distancing restrictions. - A mask is optional within the hospital at this time. Patients may have clear liquids (water, carbonated beverages, clear teas, apple juice) until 3 hours prior to surgery (7:30) with a maximum of 20 ounces. - No food from midnight until time of surgery Take the following medications with a SIP of water the morning of surgery: BUPROPION, HYDROXYZINE, TOPIRAMATE, INHALER IF NEEDED DO NOT STOP ANY OF YOUR OTHER PRESCRIPTION MEDICATIONS PRIOR TO SURGERY ?EXCEPT THE FOLLOWING Medications to discontinue per physician: N/A Date to take last dose: N/A Please no make-up, nail burkinan, hairspray, perfume, deodorant, or body powder the day of surgery. No jewelry (including any body piercings) or valuables the day of surgery, leave them at home. Please take a shower or bath the night before, or the morning of, surgery with an antibacterial soap. Wear comfortable, loose fitting clothing. - Jewelry must be removed prior to entering the operating room. Rings and piercings that are not removed may be cut off. - The hospital will not accept responsibility for valuables. - Please leave all valuables, including medications, at home the day of surgery. If you are going home after surgery, a licensed tractor trailer moving van driver must drive you home. - NO public transportation without another adult if you receive anesthesia. - We recommend that an adult stay with you for 24 hours following discharge. - We also recommend that you do not drive, make important decision, drink alcoholic beverages, or take any drugs that were not prescribed by your health care provider for at least 24 hours after your discharge time. Follow any additional instructions given to you from your surgeon. If you or anyone in your household have experienced Covid symptoms in the past week, please notify your surgeon or the nurse liaison at the phone number below for possible testing. Telephone instructions given to PT - RONNIE ERICKSON and asked if any additional questions and then verbalized understanding. Patient advised to call surgeon office or pre surgery nurse liaison [phone] if any additional questions.
[2022-04-09] VITALS (9 sets, daily range): BP systolic 105–122; BP diastolic 57–98; PULSE 60–86; RESP 11–20; TEMP 36.4; O2SAT 98–100
--- NOTE | 2022-04-09 06:03 | ECG_ITS ---
Measurements Intervals [place]beau Rate: 63 P: 54 HI: 178 QRS: 14 QRSD: 98 T: 33 QT: 390 QTc: 400 Interpretive Statements SINUS RHYTHM WITH SINUS ARRHYTHMIA OTHERWISE NORMAL ECG NO PREVIOUS ECG AVAILABLE FOR COMPARISON Electronically Signed On 04-09-2022 10:11:08 [employer]NET DAT[employer]IST by Oumar García M.D.
--- NOTE | 2022-04-09 07:57 | WPDANESEPPF ---
Anes - Initial Pre Proc Eval Procedure: Operation Date: 04/09/22 10:30 Proposed Procedures p Diagnostic Laparoscopy, Hysteroscopy with Dilation and Curettage - Sung Dunn MD Date/Time: 04/09/22 07:57 Surgeon: Sung Dunn MD Pre Op Diagnosis: Pelvic Pain, Abnormal Uterine Bleeding Patient Data Age: 26 Gender: F Height: 1.55 m Weight: 72.6 kg Allergies Allergy/AdvReac Type Severity Reaction Status Date / Time metoclopramide AdvReac Intermediate Confusion,H Verified 03/31/22 11:31 ALLUCINATIO NS Home Medications Medication Instructions Recorded Confirmed Type bupropion HCl 150 mg 24 hr tablet, 300 mg PO QAM 09/02/20 04/09/22 History extended release albuterol sulfate 90 mcg/actuation 2 puff inhalation QID PRN 04/11/21 03/31/22 Rx aerosol inhaler shortness of breath or wheezing #8 grams hydroxyzine HCl 25 mg tablet 25 mg PO TID 04/11/21 04/09/22 History atorvastatin 20 mg tablet 20 mg PO DAILY 02/02/22 04/09/22 History methylphenidate HCl 30 mg chewable 30 mg PO DAILY 02/02/22 04/09/22 History tablet immed and exten.release 24 hr topiramate 100 mg tablet 100 mg PO DAILY 03/31/22 04/09/22 History norelgestromin 150 mcg-e.estradiol 1 patch transdermal WEEKLY #3 ea 04/03/22 04/09/22 Rx 35 mcg/24 hr weekly transderm patch (Xulane) Patient hx anesthesia problems: none Family hx anesthesia problems: none Results Review: All pre-operative results and documents have been reviewed as part of the pre-operative evaluation. [facility] Past Medical History Medical History Anemia Anxiety Asthma Elevated cholesterol Encounter for screening examination for sexually transmitted disease IBS (irritable bowel syndrome) Obesity (BMI 30-39.9) Surgical History Surgical History History of placement of ear tubes as a child Family History Family History Grandparent Acute myocardial infarction paternal grandfather Cerebrovascular accident maternal grandfather maternal grandmother Breast cancer maternal grandmother Mother Lupus erythematosus Parkinsons disease Other No significant family history Social History Social History (Updated 03/16/22 @ 08:05 by Tami Mckenzie [facility]) Smoking status: Never smoker Alcohol intake: never Substance use: never Substance use type: does not use Living arrangements: with family Additional living arrangements comments: Occupation/Education: occupation Additional occupation/education comments: [employer] Gender identity (if verbalized by the patient): Female Sexual Orientation (if Verbalized by the Patient): Straight or Heterosexual Spiritual care concerns: No Anes - Eval Final PreProcedure Day of Procedure 04/09/22 07:57 Patient weight: obese Heart: regular rate and rhythm Lungs: clear to auscultation Airway: Mallampati scale class II Neurological: alert and oriented Last oral intake: >/= 8 hours ASA classification: II Emergent: no Anesthetic plan: proceed Anesthesia type and monitoring: general ETT and standard monitoring Results Review: All pre-operative results and documents have been reviewed as part of the pre-operative evaluation. Informed Consent: The patient's anesthetic plan and its attendant risks and benefits were discussed with the patient/family/POA. Questions were solicited and answers provided to the satisfaction of the patient/family/POA.
--- NOTE | 2022-04-09 08:23 | WPDHPUPDATE1 ---
History and Physical Update Update Date/Time: 04/09/22 08:23 26-year-old female presents for surgical evaluation. See last office note for details. Assessment: 1. Pelvic pain 2. Irregular vaginal bleeding Plan: 1. Hysteroscopy with uterine curettings 2. Laparoscopic evaluation History and Physical has been reviewed, including an updated exam of the patient. There are NO changes in the patient's condition. Risks, benefits, and alternatives have been discussed and questions answered. Patient agrees to proceed with procedure.
[2022-04-09] MEDS: ACETAMINOPHEN 500 MG TABLET 1000 MG PO (08:36)
[2022-04-09] MEDS: LACTATED RINGERS 1,000 ML 30 ML IV CONT (08:45)
[2022-04-09] MEDS: KETOROLAC 15 MG/ML VIAL (*BKC) IV PUSH (08:47)
--- NOTE | 2022-04-09 10:04 | W.PM.PROC2 ---
Procedure Note - Detailed Date of Procedure 04/09/22 Pre-op Diagnosis 1. Irregular vaginal bleeding 2. Pelvic pain 3. Dyspareunia Post-op Diagnosis Same (4. Enlarged uterus consistent with adenomyosis ) Procedure Performed 1. Hysteroscopy with uterine curettings 2. Diagnostic laparoscopy Surgeon Sung Dunn MD Anesthesia General Findings 1. Hysteroscopy revealed no abnormalities 2. Laparoscopy revealed tubes noted without abnormality. Uterus was enlarged boggy and splotchy consistent with adenomyosis. There was no evidence of endometriosis or other pathology throughout the pelvis. Description of Procedure Patient was prepped and draped usual manner for this procedure. Cervical instruments were placed for uterine mobility throughout the case. Attention was then placed in the abdomen and the trocars were placed under direct visualization. Findings were noted as above, specifically uterus likely with adenomyosis. Gas was allowed to escape incisions approximated using 4-0 Monocryl. Cervix was dilated to allow the hysteroscope to be placed and this revealed hypervascularity but no specific abnormalities. Curettings were obtained. There was no significant bleeding at this point the procedure was considered terminated and the patient was sent to recovery room in stable condition. Estimated Blood Loss 10 Drains No Packing No Pathology Yes Complications No immediate complications Condition Stable Disposition PACU [facility] Billing Surgery - Charge Forward: Surgery Billing
--- NOTE | 2022-04-09 11:04 | SUR.PHASEI ---
1102 - dr. garza at bedside talking with pt
[2022-04-09] MEDS: oxyCODONE HCL (*CRX) 5 MG TAB IR PO (11:26)
== END 2022-04-09 11:57 | disposition home or self-care (01) ==
PROVIDERS: PCP Nurse Practitioner Family; Visit Provider Obstetrics & Gynecology
PROC: 0UDB8ZZ Extraction of Endometrium, Via Natural or Artificial Opening Endoscopic (ICD-10-PCS; CPT 58558; principal; 2022-04-09 10:30)
DX: N93.9 Abnormal uterine and vaginal bleeding, unspecified (principal); R10.2 Pelvic and perineal pain; N94.10 Unspecified dyspareunia; J45.909 Unspecified asthma, uncomplicated; F41.9 Anxiety disorder, unspecified; E78.00 Pure hypercholesterolemia, unspecified; Z79.51 Long term (current) use of inhaled steroids; E66.9 Obesity, unspecified; Z68.30 Body mass index [BMI] 30.0-30.9, adult
CPT/HCPCS: 49320; 58558; 88305; 93005; A9270; J0330; J1100; J1170; J1885; J2250; J2405; J2704; J7030; J7120

== ENCOUNTER 2022-05-14 01:20 | Day surgery (SDC) | payer BC, SELFPAY ==
[2022-05-04 14:29] VITALS: BMI 27.4
--- NOTE | 2022-05-04 14:32 | PC.NURSE ---
Report to the Outpatient Waiting Room, entrance under the green pavilion located off [facility], at time _0730__ on date _05/14/22__. Planned Procedure Time: _30__. Time changes happen often and if your time is changed the preop area will call you the afternoon before. - You and your visitor will be asked to self-screen and do not enter if you have any COVID symptoms. - Only one visitor is requested with a max of two and NO children visitors are allowed at this time. - The patient visitor may be requested to leave or wait in car when not with patient due to distancing restrictions. - A mask is optional within the hospital at this time. Patients may have clear liquids (water, carbonated beverages, clear teas, apple juice) until 3 hours prior to surgery with a maximum of 20 ounces. - No food from midnight until time of surgery - Infants may have breast milk until 4 hours before surgery, infant formula 6 hours prior to surgery. - Children will be allowed to drink immediately following surgery. If applicable, please bring a bottle or sippy cup to assist with drinking. Juice, water, soda, and popsicles are readily available. For infants on formula, please bring formula the day of surgery. Pacifiers are allowed. Take the following medications with a SIP of water the morning of surgery: __Albuterol in needed, Bupropion, Hydroxyzine__ DO NOT STOP ANY OF YOUR OTHER PRESCRIPTION MEDICATIONS PRIOR TO SURGERY ?EXCEPT THE FOLLOWING Medications to discontinue per physician _Supplement and vitamins 3 days prior Date to take last dose Please no make-up, nail bengali, hairspray, perfume, deodorant, or body powder the day of surgery. No jewelry (including any body piercings) or valuables the day of surgery, leave them at home. Please take a shower or bath the night before, or the morning of, surgery with an antibacterial soap. Wear comfortable, loose fitting clothing. Children are encouraged to wear pajamas. - Jewelry must be removed prior to entering the operating room. Rings and piercings that are not removed may be cut off. - The hospital will not accept responsibility for valuables. - Please leave all valuables, including medications, at home the day of surgery. If you are going home after surgery, a licensed spike driver must drive you home. - NO public transportation without another adult if you receive anesthesia. - We recommend that an adult stay with you for 24 hours following discharge. - We also recommend that you do not drive, make important decision, drink alcoholic beverages, or take any drugs that were not prescribed by your health care provider for at least 24 hours after your discharge time. For Pediatric surgeries, we recommend two adults accompany the child home. Follow any additional instructions given to you from your surgeon. If you or anyone in your household have experienced Covid symptoms in the past week, please notify your surgeon or the nurse liaison at the phone number below for possible testing. Telephone instructions given to _patient___and asked if any additional questions and then verbalized understanding. Patient advised to call surgeon office or pre surgery nurse liaison [phone] if any additional questions.
--- NOTE | 2022-05-13 09:53 | WPDANESEPPF ---
Anes - Initial Pre Proc Eval Procedure: Operation Date: 05/14/22 09:30 Proposed Procedures p Robotic Assisted Total Laparoscopic Hysterectomy - Sung Dunn MD Date/Time: 05/13/22 09:53 Surgeon: Sung Dunn MD Pre Op Diagnosis: abnormal uterine bleeding Patient Data Age: 26 Gender: F Height: 1.63 m Weight: 72.57 kg Allergies Allergy/AdvReac Type Severity Reaction Status Date / Time metoclopramide AdvReac Intermediate Confusion,H Verified 05/14/22 07:59 ALLUCINATIO NS Home Medications Medication Instructions Recorded Confirmed Type bupropion HCl 150 mg 24 hr tablet, 300 mg PO QAM 09/02/20 05/04/22 History extended release albuterol sulfate 90 mcg/actuation 2 puff inhalation QID PRN 04/11/21 05/04/22 Rx aerosol inhaler shortness of breath or wheezing #8 grams hydroxyzine HCl 25 mg tablet 25 mg PO TID 04/11/21 05/04/22 History atorvastatin 20 mg tablet 20 mg PO DAILY 02/02/22 05/04/22 History methylphenidate HCl 30 mg chewable 30 mg PO DAILY 02/02/22 05/04/22 History tablet immed and exten.release 24 hr topiramate 100 mg tablet 100 mg PO DAILY 03/31/22 05/04/22 History norelgestromin 150 mcg-e.estradiol 1 patch transdermal WEEKLY #3 ea 04/03/22 05/04/22 Rx 35 mcg/24 hr weekly transderm patch (Xulane) Patient hx anesthesia problems: none Family hx anesthesia problems: none Results Review: All pre-operative results and documents have been reviewed as part of the pre-operative evaluation. [facility] Past Medical History Medical History Anemia Anxiety Asthma Elevated cholesterol Encounter for screening examination for sexually transmitted disease IBS (irritable bowel syndrome) Obesity (BMI 30-39.9) Surgical History Surgical History History of hysteroscopy (04/09/22) Hscope D&C/ diagnostic laparoscopy History of placement of ear tubes as a child Family History Family History Grandparent Acute myocardial infarction paternal grandfather Cerebrovascular accident maternal grandfather maternal grandmother Breast cancer maternal grandmother Mother Lupus erythematosus Parkinsons disease Other No significant family history Social History Social History Smoking status: Never smoker Alcohol intake: never Substance use: never Substance use type: does not use Living arrangements: with family Additional living arrangements comments: Occupation/Education: occupation Additional occupation/education comments: [employer] Gender identity (if verbalized by the patient): Female Sexual Orientation (if Verbalized by the Patient): Straight or Heterosexual Spiritual care concerns: No Anes - Eval Final PreProcedure Day of Procedure 05/13/22 09:53 Patient weight: overweight Heart: regular rate and rhythm Lungs: clear to auscultation Airway: Mallampati scale class II Neurological: alert and oriented Last oral intake: >/= 8 hours ASA classification: II Emergent: no Anesthetic plan: proceed Anesthesia type and monitoring: general ETT and standard monitoring Results Review: All pre-operative results and documents have been reviewed as part of the pre-operative evaluation. Informed Consent: The patient's anesthetic plan and its attendant risks and benefits were discussed with the patient/family/POA. Questions were solicited and answers provided to the satisfaction of the patient/family/POA.
[2022-05-14] VITALS (12 sets, daily range): BP systolic 113–134; BP diastolic 64–82; PULSE 64–100; RESP 13–18; TEMP 36.2–36.7; O2SAT 97–100
[2022-05-14 08:14] LABS: Hematocrit 38.2 % (37.0-47.0); Hemoglobin 12.9 g/dL (12.0-15.0); Mean Corpuscular HGB Conc 33.8 g/dl (32-36); Mean Corpuscular Hemoglobin 29.4 pg (26-34); Mean Platelet Volume 10.1 fl (7.4-10.4); Platelet Count Result 311 k/mm3 (150-375); Red Blood Count 4.39 M/mm3 (4.2-5.4); Red Cell Distribution Width 11.9 % (11.5-14.5); White Blood Count 5.9 K/mm3 (4.5-10.0)
[2022-05-14] MEDS: LACTATED RINGERS 1,000 ML 30 ML IV CONT ×2 (08:22→11:01)
[2022-05-14] MEDS: ACETAMINOPHEN 500 MG TABLET 1000 MG PO (08:22)
[2022-05-14] MEDS: KETOROLAC 15 MG/ML VIAL (*BKC) IV PUSH (08:23)
--- NOTE | 2022-05-14 08:45 | P.HPUP_ITS ---
History and Physical Update Update Date/Time: 05/14/22 08:45 Assessment: 1. Irregular vaginal bleeding likely adenomyosis Plan: 1.robotic assisted laparoscopic total hysterectomy with ovarian preservation History and Physical has been reviewed, including an updated exam of the patient . There are NO changes in the patient's condition. Risks, benefits, and alternatives have been discussed and questions answered. Patient agrees to proceed with procedure.
[2022-05-14] MEDS: ceFAZolin 2 GM/D5W 50 ML 2 GM/50 ML BAG IVPB (09:25)
--- NOTE | 2022-05-14 10:40 | P.OP_ITS ---
Procedure Note - Detailed Date of Procedure 05/14/22 Pre-op Diagnosis abnormal uterine bleeding Post-op Diagnosis Same Procedure Performed Robotic assisted total laparoscopic hysterectomy with bilateral salpingectomy Surgeon Sung Dunn MD Anesthesia General Findings Enlarged boggy uterus with normal tubes and ovaries. Description of Procedure Patient prepped draped usual manner for this procedure. Cervical instruments were placed for uterine mobility throughout the case. Attention was then placed to the abdomen and the trocar sites were marked and placed under direct visualization. The [employer] system was attached to the trocars and instruments placed under direct visualization. Surgeon moved to the console and utero- ovarian ligament cauterized and cut round ligament cauterized and cut and the anterior and posterior leaf the broad ligament were then incised to skeletonize the uterine vessels. Once skeletonized they were cauterized and cut without difficulty. Entire to the bladder flap was then formed and using scissor the posterior colpotomy incision was made carried circumferentially to separate the cervix from the vaginal cuff. Uterus was delivered into the vagina and the cuff was inspected no significant bleeding. Cuff was then closed using V lock suture from the right angle to the midline and left angle to midline with good approximation hemostasis noted. Irrigation was undertaken there was no bleeding and Misael was placed empirically over the vaginal cuff. Instruments were removed trocars removed and the skin incisions were approximated using 4-0 Monocryl. Patient was then sent to the recovery room in stable condition. Estimated Blood Loss 50 Drains No Packing No Pathology Yes Complications No immediate complications Condition Stable Disposition PACU [facility] Billing Surgery - Charge Forward: Surgery Billing
[2022-05-14] MEDS: fentaNYL CITRATE INJ (*CRX) 100 MCG/2 ML VIAL 25 MCG IV PUSH ×6 (11:21→11:53)
[2022-05-14] MEDS: ONDANSETRON INJ 4 MG/2 ML VIAL IV PUSH (12:52)
[2022-05-14] MEDS: MORPHINE SULFATE (*CRX) 4 MG/ML INJ IV PUSH (12:52)
[2022-05-14] MEDS: KETOROLAC 30 MG/ML VIAL (*BKC) IV PUSH (14:10)
[2022-05-14] MEDS: HYDROcodone/acetaminophen (*CRX) 5-325 MG TABLET 1 TAB PO (14:30)
[2022-05-14] MEDS: SIMETHICONE 80 MG TAB.CHEW PO ×2 (16:40→22:00)
[2022-05-14] MEDS: hydrOXYzine HCL 25 MG TABLET PO (16:58)
[2022-05-14] MEDS: HYDROcodone/acetaminophen (*CRX) 10-325 MG TABLET 1 TAB PO ×2 (17:46→22:00)
[2022-05-14] MEDS: IBUPROFEN 600 MG TABLET PO (22:00)
[2022-05-15] MEDS: IBUPROFEN 600 MG TABLET PO ×2 (03:57→10:15)
[2022-05-15] MEDS: SIMETHICONE 80 MG TAB.CHEW PO ×2 (03:57→10:15)
[2022-05-15] MEDS: HYDROcodone/acetaminophen (*CRX) 5-325 MG TABLET 1 TAB PO ×2 (03:57→10:15)
[2022-05-15 04:30] LABS: Basophils Percent Auto 0.2 % (0.2-1.2); Eosinophils Percent Auto 0.2 % (0-4.4); Hematocrit 34.2 % (37.0-47.0); Hemoglobin 11.4 g/dL (12.0-15.0); Immature Granulocyte Absolute 0.03 K/mm3 (0.00-0.031); Immature Granulocyte Percent A 0.3 % (0-0.5); Lymphocytes Absolute Auto 2.63 K/mm3 (0.9-3.2); Lymphocytes Percent Auto 26.1 % (18.3-44.2); Mean Corpuscular HGB Conc 33.3 g/dl (32-36); Mean Corpuscular Hemoglobin 29.2 pg (26-34); Mean Corpuscular Volume 87.7 fl (80-100); Mean Platelet Volume 10.4 fl (7.4-10.4); Monocytes Absolute Auto 0.9 K/mm3 (0.1-0.6); Monocytes Percent Auto 8.6 % (2.6-8.5); Neutrophils Absolute Auto 6.5 K/mm3 (1.3-6.7); Neutrophils Percent Auto 64.6 % (45.5-73.1); Platelet Count Result 300 k/mm3 (150-375); Red Cell Distribution Width 11.9 % (11.5-14.5); White Blood Count 10.1 K/mm3 (4.5-10.0)
[2022-05-15 08:35] VITALS: BP 115/67; PULSE 65; RESP 16; TEMP 36.5; O2SAT 100
--- NOTE | 2022-05-15 09:34 | P.PNAN_ITS ---
Anes - Prog Note Post-Op Date/Time: 05/15/22 09:34 Cardiovascular status: normal Respiratory status: normal Airway patency: baseline Mental status: baseline Post-Op hydration status: normal Vital Signs: Last Vital Signs Temp 36.5 C 05/14/22 19:07 Pulse 75 05/14/22 19:07 Resp 16 05/14/22 19:07 BP 118/82 05/14/22 19:07 Pulse Ox 99 05/14/22 16:30 O2 Del Method Room Air 05/14/22 16:30 O2 Flow Rate 8 05/14/22 11:30 Pain Score (VAS): 0 I/O: Intake & Output 05/14/22 05/15/22 05/15/22 23:59 07:59 15:59 Intake Total 700 Output Total 150 Balance 550 Laboratory Tests 05/15/22 03:52 05/15/22 03:52 WBC 10.1 H RBC 3.90 L Hgb 11.4 L Hct 34.2 L MCV 87.7 MCH 29.2 MCHC 33.3 RDW 11.9 Plt Count 300 MPV 10.4 Immature Gran % (Auto) 0.3 Neut % (Auto) 64.6 Lymph % (Auto) 26.1 [place] % (Auto) 8.6 H Eos % (Auto) 0.2 Baso % (Auto) 0.2 Lymph # (Auto) 2.63 [place] # (Auto) 0.9 H Eos # (Auto) 0.0 Baso # (Auto) 0.0 Abs Immat Gran (auto) 0.03 Absolute Neuts (auto) 6.5 Absolute Nucleated RBC 0.0 Nucleated RBC % 0.0 Post-procedural complaints: none Patient Feedback: Patient satisfied with anesthetic care.
[2022-05-15 10:00] VITALS: PULSE 65; RESP 16; O2SAT 100
[2022-05-15] MEDS: buPROPion HCL XL (24 HR) 150 MG TABCR 300 MG PO (10:15)
[2022-05-15] MEDS: hydrOXYzine HCL 25 MG TABLET PO (10:15)
[2022-05-15] MEDS: TOPIRAMATE 100 MG TABLET PO (10:15)
[2022-05-15] MEDS: ATORVASTATIN 20 MG TABLET PO (10:24)
== END 2022-05-15 11:43 | disposition home or self-care (01) ==
LOC: ANHSURGERY 07:32 → ANHOB2 05-15 07:10
PROVIDERS: PCP Nurse Practitioner Family; Visit Provider Obstetrics & Gynecology
PROC: (CPT 58552; principal; 2022-05-14 09:30)
DX: N93.8 Other specified abnormal uterine and vaginal bleeding (principal); N83.8 Other noninflammatory disorders of ovary, fallopian tube and broad ligament; J45.909 Unspecified asthma, uncomplicated
CPT/HCPCS: 58552; S2900; 36415; 85025; 85027; 86850; 86900; 86901; 88307; 99199; A9270; J0690; J1100; J1170; J1885; J2250; J2270; J2405; J2704; J2710; J3010; J7030; J7120

== ENCOUNTER 2022-06-30 08:16 | Emergency (ER) | payer BC, SELFPAY ==
--- NOTE | 2022-06-30 08:17 | ED.URI ---
HPI - URI/Sore Throat General Chief Complaint: Upper Respiratory Infection Stated Complaint: Sore Throat Time Seen by Provider: 06/30/22 08:17 Source: patient and RN notes reviewed History of Present Illness HPI Narrative: Patient is a 26-year-old female presents to urgent care with complaints of a sore throat since Wednesday with fever, nausea and vomiting that started yesterday. Patient has taken Tylenol, use hot tea and honey for symptom relief. No other acute complaints. No acute distress noted. Patient aware of the plan of care. Some parts of this dictation were generated by voice recognition software and may contain typographical and/or grammatical inaccuracies. Related Data Home Medications Medication Instructions Recorded Confirmed bupropion HCl 150 mg 24 hr tablet, 300 mg PO QAM 09/02/20 06/30/22 extended release hydroxyzine HCl 25 mg tablet 25 mg PO TID 04/11/21 06/30/22 atorvastatin 20 mg tablet 20 mg PO DAILY 02/02/22 06/30/22 methylphenidate HCl 30 mg chewable 30 mg PO DAILY 02/02/22 06/30/22 tablet immed and exten.release 24 hr Allergies Allergy/AdvReac Type Severity Reaction Status Date / Time metoclopramide AdvReac Intermediate Confusion,H Verified 06/30/22 08:30 ALLUCINATIO ERIS Review of Systems Review of Systems: CONSTITUTIONAL: Reports of fever chills EYES: Denies visual changes, redness, or discharge. ENT: Denies rhinorrhea, congestion, otalgia. Reports sore throat tonsillar swelling CARDIOVASCULAR: Denies chest pain, palpitations, or edema. RESPIRATORY: Denies cough or dyspnea. GASTROINTESTINAL: Reports resolved nausea vomiting GENITOURINARY: Denies dysuria or hematuria. SKIN: Denies rash or itching. MUSCULOSKELETAL: Denies back pain, joint pain, or myalgia. NEUROLOGIC: Denies headache, numbness, or weakness. All other systems reviewed are negative, except as documented in HPI. [facility] Past Medical History Medical History (Updated 06/30/22 @ 08:46 by NATALIA Alvarez) Anemia Anxiety Asthma Elevated cholesterol Encounter for screening examination for sexually transmitted disease IBS (irritable bowel syndrome) Obesity (BMI 30-39.9) Surgical History Surgical History (Updated 06/16/22 @ 16:15 by KATI Porter) H/O: hysterectomy (05/14/22) Robotic assisted total laparoscopic hysterectomy with bilateral salpingectomy/ uterine bleeding History of hysteroscopy (04/09/22) Hscope D&C/ diagnostic laparoscopy History of placement of ear tubes as a child Family History Family History Grandparent Acute myocardial infarction paternal grandfather Cerebrovascular accident maternal grandfather maternal grandmother Breast cancer maternal grandmother Mother Lupus erythematosus Parkinsons disease Other No significant family history Social History Social History Smoking status: Never smoker Alcohol intake: never Substance use: never Substance use type: does not use Living arrangements: with family Additional living arrangements comments: Occupation/Education: occupation Additional occupation/education comments: [employer] Gender identity (if verbalized by the patient): Female Sexual Orientation (if Verbalized by the Patient): Straight or Heterosexual Spiritual care concerns: No Comments At the time of my signature, I reviewed and agree with the nursing past medical, surgical, social, and family history. There is no relevant family history pertinent to the patient complaint. Exam Narrative: GENERAL: This is a well-nourished, well-developed patient, in no apparent distress. HEAD: normocephalic, atraumatic. EYES: PERRL. Sclera clear/white. Vision is grossly intact. EARS: External ears normal, auditory canals clear and without drainage, TMs normal without perforation. Hearing grossly intact.
[2022-06-30 08:27] VITALS: BP 115/73; PULSE 107; RESP 16; TEMP 36.8; O2SAT 100
== END 2022-06-30 08:53 | disposition home or self-care (01) ==
PROVIDERS: Emergency Provider Nurse Practitioner Family; PCP Nurse Practitioner Family
DX: J02.0 Streptococcal pharyngitis (principal); J45.909 Unspecified asthma, uncomplicated; E78.00 Pure hypercholesterolemia, unspecified; E66.9 Obesity, unspecified; Z68.30 Body mass index [BMI] 30.0-30.9, adult
CPT/HCPCS: 87880; 99213; G0463

== ENCOUNTER → 2022-09-28 11:50 | Outpatient (CLI) | payer BC, SELFPAY ==
--- NOTE | ~2022-09-28 | US_ITS ---
EXAMINATION: US breast LT limited HISTORY: Palpable lump in the lower inner quadrant left breast TECHNIQUE: Limited left breast ultrasound performed. FINDINGS: There is a 3 mm cyst at the 7:00 location 1 cm from the nipple in the area of palpable conc kenna. No suspicious cystic or solid mass is identified. IMPRESSION: No suspicious sonographic correlate is identified for the reported palpable abnormality of concern. F urther evaluation at this time should be based on clinical assessment. Continued follow-up physical e xamination is recommended. BI-RADS Category 2: Benign finding(s). Reviewed, dictated and finalized at location D. IMPRESSION: No suspicious sonographic correlate is identified for the reported palpable abn ormality of concern. Further evaluation at this time should be based on clinica l assessment. Continued follow-up physical examination is recommended. BI-RADS Category 2: Benign finding(s).
== END ==
PROVIDERS: PCP Obstetrics & Gynecology; Visit Provider Student in an Organized Health Care Education/Training Program
DX: N63.20 Unspecified lump in the left breast, unspecified quadrant (principal)
CPT/HCPCS: 76642

== ENCOUNTER 2023-05-16 08:13 | Emergency (ER) | payer BC, SELFPAY ==
[2023-05-16 08:18] VITALS: BP 129/65; PULSE 89; RESP 20; TEMP 36.8; O2SAT 100
--- NOTE | 2023-05-16 08:22 | ED.GENADULT ---
HPI - General Adult General Chief complaint: Neck Pain/Injury Stated complaint: neck swollen Time Seen by Provider: 05/16/23 08:28 Source: patient, RN notes reviewed and old records reviewed Mode of arrival: ambulatory Limitations: no limitations History of Present Illness HPI narrative: 27 year old female who presents to [facility] with complaints of her neck swelling for the past week duration. Patient reports that she has history of Lupus and has had this swelling to her neck before and saw Supervisor Felling Bucking in the past but did not care for physician, has appointment in July with Supervisor Felling Bucking at [facility]. Patient reports that knot on side of her neck has been there for some time but noted some surrounding swelling this past week. Patient denies any difficulty with her breathing or any trouble swallowing..Patient reports no fevers or cold symptoms or sore throat. MD complaint: neck swelling Onset (ago): week(s) (1) Location: neck (right side of neck) Severity: mild Treatments prior to arrival: other (Meloxicam) Related Data Home Medications Medication Instructions Recorded Confirmed atorvastatin 20 mg tablet 20 mg PO DAILY 02/02/22 04/21/23 ergocalciferol (vitamin D2) 1,250 1,250 mcg PO 09/24/22 04/21/23 mcg (50,000 unit) capsule methylphenidate HCl 20 mg mg PO 09/24/22 04/21/23 tablet,extended release meloxicam 15 mg tablet 15 mg PO DAILY 02/08/23 04/21/23 Allergies Allergy/AdvReac Type Severity Reaction Status Date / Time metoclopramide AdvReac Intermediate Confusion,H Verified 04/21/23 10:06 VALERY SCHULTE Review of Systems Review of Systems: CONSTITUTIONAL: Denies fever, chills, or sweats. EYES: Denies visual changes, redness, or discharge. ENT: Denies rhinorrhea, congestion, sore throat, or otalgia. CARDIOVASCULAR: Denies chest pain, palpitations, or edema. RESPIRATORY: Denies cough or dyspnea. GASTROINTESTINAL: Denies abdominal pain, nausea, vomiting, or diarrhea. GENITOURINARY: Denies dysuria or hematuria. SKIN: Denies rash or itching.palpable knot to right neck with mild swelling MUSCULOSKELETAL: Denies back pain, reports persistent joint pain, or myalgia. NEUROLOGIC: Denies headache, numbness, or weakness. PSYCHIATRIC: Denies anxiety or depression. All systems reviewed & are unremarkable except as noted in HPI and below PMFSH Past Medical History Medical History Anemia Anxiety Asthma Elevated cholesterol Encounter for screening examination for sexually transmitted disease IBS (irritable bowel syndrome) Obesity (BMI 30-39.9) Undifferentiated connective tissue disease Surgical History Surgical History H/O: hysterectomy (05/14/22) Robotic assisted total laparoscopic hysterectomy with bilateral salpingectomy/ uterine bleeding History of hysteroscopy (04/09/22) Hscope D&C/ diagnostic laparoscopy History of placement of ear tubes as a child Family History Family History Grandparent Acute myocardial infarction paternal grandfather Cerebrovascular accident maternal grandfather maternal grandmother Breast cancer maternal grandmother Mother Lupus erythematosus Parkinsons disease Father Acute myocardial infarction Other No significant family history Social History Social History Smoking status: Never smoker Second hand tobacco smoke exposure: No Alcohol intake: never Substance use: never Substance use type: does not use Lack of Transportation: No Lack of Food: Never True Current Housing: I Have Housing Concerned About Future Housing: No Difficulty Paying Gas/Electric Bills: No Difficulty Paying for Meds: No Currently Unemployed: No Education: High School Diploma/GED Difficulty w/ Childcare or Family Ca
== END 2023-05-16 08:57 | disposition home or self-care (01) ==
PROVIDERS: Emergency Provider Registered Nurse; PCP Nurse Practitioner Family
DX: R22.1 Localized swelling, mass and lump, neck (principal); J45.909 Unspecified asthma, uncomplicated; E78.00 Pure hypercholesterolemia, unspecified; E66.9 Obesity, unspecified; Z68.31 Body mass index [BMI] 31.0-31.9, adult
CPT/HCPCS: 99213; G0463

== ENCOUNTER 2023-06-14 00:48 | Day surgery (SDC) | payer BC, SELFPAY ==
[2023-06-10 08:21] VITALS: BMI 31.2
--- NOTE | 2023-06-10 08:30 | PC.NURSE ---
Report to the Outpatient Waiting Room, entrance under the green pavilion located off [facility], at time _1000_ on date _06/14/23. Planned Procedure Time: _1200_. Time changes happen often and if your time is changed the preop area will call you the afternoon before. - You and your visitor will be asked to self-screen and do not enter if you have any COVID symptoms. - A mask is optional within the hospital at this time. Patients may have clear liquids (water, carbonated beverages, clear teas, apple juice) until 3 hours prior to surgery with a maximum of 20 ounces. - No food from midnight until time of surgery - Infants may have breast milk until 4 hours before surgery, formula 6 hours prior to surgery. - Children will be allowed to drink immediately following surgery. If applicable, please bring a bottle or sippy cup to assist with drinking. Juice, water, soda, and popsicles are readily available. For infants on formula, please bring formula the day of surgery. Pacifiers are allowed. Take the following medications with a SIP of water the morning of surgery: NONE DO NOT STOP ANY OF YOUR OTHER PRESCRIPTION MEDICATIONS PRIOR TO SURGERY ?EXCEPT THE FOLLOWING Medications to discontinue per physician VITAMIN D Date to take last dose 06/11/23 Please no make-up, nail comoran, hairspray, perfume, deodorant, or body powder the day of surgery. No jewelry (including any body piercings) or valuables the day of surgery, leave them at home. Please take a shower or bath the night before, or the morning of, surgery with an HIBICLENS antibacterial soap. Wear comfortable, loose fitting clothing. Children are encouraged to wear pajamas. - Jewelry must be removed prior to entering the operating room. Rings and piercings that are not removed may be cut off. - The hospital will not accept responsibility for valuables. - Please leave all valuables, including medications, at home the day of surgery. If you are going home after surgery, a licensed snaker tractor driver must drive you home. - NO public transportation without another adult if you receive anesthesia. - We recommend that an adult stay with you for 24 hours following discharge. - We also recommend that you do not drive, make important decision, drink alcoholic beverages, or take any drugs that were not prescribed by your health care provider for at least 24 hours after your discharge time. For Pediatric surgeries, we recommend two adults accompany the child home. Follow any additional instructions given to you from your surgeon. If you or anyone in your household have experienced Covid symptoms in the past week, please notify your surgeon or the nurse liaison at the phone number below for possible testing. Telephone instructions given to _PATIENT___and asked if any additional questions and then verbalized understanding. Patient advised to call surgeon office or pre surgery nurse liaison [phone] if any additional questions.
[2023-06-14] VITALS (9 sets, daily range): BP systolic 96–131; BP diastolic 56–87; PULSE 72–108; RESP 12–22; TEMP 36.3–36.5; O2SAT 100
[2023-06-14] MEDS: KETOROLAC 15 MG/ML VIAL (*BKC) IV PUSH (10:30)
[2023-06-14] MEDS: ACETAMINOPHEN 500 MG TABLET 1000 MG PO (10:30)
[2023-06-14] MEDS: LACTATED RINGERS 1,000 ML 30 ML IV CONT (10:30)
--- NOTE | 2023-06-14 10:53 | WPDANESEPPF ---
Anes - Initial Pre Proc Eval Procedure: Operation Date: 06/14/23 12:00 Proposed Procedures p Rectal Examination Under Anesthesia, Hemorrhoidectomy - Aleja Jason MD Date/Time: 06/14/23 10:53 Surgeon: Aleja Jason MD Pre Op Diagnosis: external hemorrhoid Patient Data Age: 27 Gender: F Height: 1.55 m Weight: 77 kg Last Vital Signs Temp 36.5 C 06/14/23 10:31 Pulse 78 06/14/23 10:31 Resp 14 06/14/23 10:31 BP 105/76 06/14/23 10:31 Pulse Ox 100 06/14/23 10:31 O2 Del Method Room Air 06/14/23 10:31 Allergies Allergy/AdvReac Type Severity Reaction Status Date / Time metoclopramide AdvReac Intermediate Confusion,H Verified 06/14/23 10:36 ALLUCINATIO NS Home Medications Medication Instructions Recorded Confirmed Type atorvastatin 20 mg tablet 20 mg PO DAILY 02/02/22 06/10/23 History ergocalciferol (vitamin D2) 1,250 1,250 mcg PO WEEKLY 09/24/22 06/10/23 History mcg (50,000 unit) capsule methylphenidate HCl 20 mg 27 mg PO DAILY 09/24/22 06/10/23 History tablet,extended release meloxicam 15 mg tablet 15 mg PO DAILY 02/08/23 06/10/23 History hydrocortisone 2.5 % topical cream 1 applic RECTAL BID PRN 04/21/23 06/10/23 Rx with perineal applicator hemorrhoids #30 grams (Anusol-HC) albuterol 90 mcg-budesonide 80 2 inh inhalation ONCE PRN 06/10/23 06/10/23 History mcg/actuation HFA aerosol inhaler Shortness Of Breath Or Wheezing Patient hx anesthesia problems: none Family hx anesthesia problems: none Results Review: All pre-operative results and documents have been reviewed as part of the pre-operative evaluation. [facility] Past Medical History Medical History Anemia Anxiety Asthma Elevated cholesterol Encounter for screening examination for sexually transmitted disease IBS (irritable bowel syndrome) Obesity (BMI 30-39.9) Undifferentiated connective tissue disease Surgical History Surgical History H/O: hysterectomy (05/14/22) Robotic assisted total laparoscopic hysterectomy with bilateral salpingectomy/ uterine bleeding History of hysteroscopy (04/09/22) Hscope D&C/ diagnostic laparoscopy History of placement of ear tubes as a child Family History Family History Grandparent Acute myocardial infarction paternal grandfather Cerebrovascular accident maternal grandfather maternal grandmother Breast cancer maternal grandmother Mother Lupus erythematosus Parkinsons disease Father Acute myocardial infarction Other No significant family history Social History Social History Smoking status: Never smoker Second hand tobacco smoke exposure: No Alcohol intake: former Substance use: former Substance use type: marijuana Last use: 5 YRS AGO Lack of Transportation: No Lack of Food: Never True Current Housing: I Have Housing Concerned About Future Housing: No Difficulty Paying Gas/Electric Bills: No Difficulty Paying for Meds: No Currently Unemployed: No Education: High School Diploma/GED Difficulty w/ Childcare or Family Care: No Living arrangements: with family Additional living arrangements comments: Occupation/Education: occupation Additional occupation/education comments: [employer] Gender identity (if verbalized by the patient): Female Sexual Orientation (if Verbalized by the Patient): Straight or Heterosexual Spiritual care concerns: No Anes - Eval Final PreProcedure Day of Procedure 06/14/23 10:53 Patient weight: obese Heart: regular rate and rhythm Lungs: clear to auscultation Airway: Mallampati scale class II Neurological: alert and oriented Last oral intake: >/= 8 hours ASA classification: II Emergent: no Anesthetic plan: proceed
--- NOTE | 2023-06-14 11:03 | PM.IMHP ---
H&P: HPI History of Present Illness Date/Time: 06/14/23 11:03 Chief Complaint: hemorrhoids Narrative: Clarice is a 27 y/o female who presents to the office at the request of Dr. Dunn for evaluation of hemorrhoids. Patient first noticed the hemorrhoid approximately 3 years ago. Tends to have flare-ups of pain and itching. She has previously used OTC creams and wipes with minimal relief. She denies any pain today, but she does have slight pain and red blood when wiping after a BM. She denies any constipation and is having regular BM's. Review of Systems Review of Systems: All systems reviewed & are unremarkable except as noted in HPI and below PMFSH Past Medical History Medical History Anemia Anxiety Asthma Elevated cholesterol Encounter for screening examination for sexually transmitted disease IBS (irritable bowel syndrome) Obesity (BMI 30-39.9) Undifferentiated connective tissue disease Surgical History Surgical History H/O: hysterectomy (05/14/22) Robotic assisted total laparoscopic hysterectomy with bilateral salpingectomy/ uterine bleeding History of hysteroscopy (04/09/22) Hscope D&C/ diagnostic laparoscopy History of placement of ear tubes as a child Family History Family History Grandparent Acute myocardial infarction paternal grandfather Cerebrovascular accident maternal grandfather maternal grandmother Breast cancer maternal grandmother Mother Lupus erythematosus Parkinsons disease Father Acute myocardial infarction Other No significant family history Social History Social History Smoking status: Never smoker Second hand tobacco smoke exposure: No Alcohol intake: former Substance use: former Substance use type: marijuana Last use: 5 YRS AGO Lack of Transportation: No Lack of Food: Never True Current Housing: I Have Housing Concerned About Future Housing: No Difficulty Paying Gas/Electric Bills: No Difficulty Paying for Meds: No Currently Unemployed: No Education: High School Diploma/GED Difficulty w/ Childcare or Family Care: No Living arrangements: with family Additional living arrangements comments: Occupation/Education: occupation Additional occupation/education comments: [employer] Gender identity (if verbalized by the patient): Female Sexual Orientation (if Verbalized by the Patient): Straight or Heterosexual Spiritual care concerns: No Meds Home Medications and Allergies Home Medications Medication Instructions Recorded Confirmed Type atorvastatin 20 mg tablet 20 mg PO DAILY 02/02/22 06/10/23 History ergocalciferol (vitamin D2) 1,250 1,250 mcg PO WEEKLY 09/24/22 06/10/23 History mcg (50,000 unit) capsule methylphenidate HCl 20 mg 27 mg PO DAILY 09/24/22 06/10/23 History tablet,extended release meloxicam 15 mg tablet 15 mg PO DAILY 02/08/23 06/10/23 History hydrocortisone 2.5 % topical cream 1 applic RECTAL BID PRN 04/21/23 06/10/23 Rx with perineal applicator hemorrhoids #30 grams (Anusol-HC) albuterol 90 mcg-budesonide 80 2 inh inhalation ONCE PRN 06/10/23 06/10/23 History mcg/actuation HFA aerosol inhaler Shortness Of Breath Or Wheezing Allergies Allergy/AdvReac Type Severity Reaction Status Date / Time metoclopramide AdvReac Intermediate Confusion,H Verified 06/14/23 10:36 ALLUCINATIO NS Vital Signs Vital Signs - 24 hr 06/14/23 10:31 Temperature 36.5 C Pulse Rate 78 Respiratory Rate 14 Blood Pressure 105/76 Pulse Oximetry 100 Oxygen Delivery Room Air Exam Const: General: cooperative, comfortable and no acute distress Resp: Auscultation: clear to auscultation bilaterally Cardio: Rate: regular rate Rhythm: regular rhythm
--- NOTE | 2023-06-14 11:05 | WPDHPUPDATE1 ---
History and Physical Update Update Date/Time: 06/14/23 11:05 History and Physical has been reviewed, including an updated exam of the patient. There are NO changes in the patient's condition. Risks, benefits, and alternatives have been discussed and questions answered. Patient agrees to proceed with procedure.
[2023-06-14] MEDS: ceFAZolin 2 GM/D5W 50 ML 2 GM/50 ML BAG IVPB (11:42)
[2023-06-14] MEDS: BUPIVACAINE/EPINEPHRINE 0.5% 30 ML VIAL INFILTRATE (12:07)
[2023-06-14] MEDS: LIDOCAINE HCL 2% JELLY 5 ML TUBE 1 APPLIC MUCOUS MEM (12:13)
--- NOTE | 2023-06-14 12:19 | P.OP_ITS ---
Procedure Note - Detailed Date of Procedure 06/14/23 Pre-op Diagnosis external hemorrhoids Post-op Diagnosis Same Procedure Performed Exam under anesthesia, external hemorrhoidectomy involving left lateral and right anterior positions Surgeon Aleja Jason MD Anesthesia General Indications 27 y/o F c multiple external hemorrhoids c frequent flares causing pain, bleeding refractory to conservative measures. Findings multiple external hemorrhoids predominately in L lateral and R anterior Description of Procedure The patient was taken to the operating room and placed in the modified lithotomy position. After adequate induction of general anesthesia, the patient was prepped and draped in the normal sterile fashion. A time-out was then done to verify the patient's identity, as well as the procedure being performed. I began by doing a digital exam. There was noted to be multiple external hemorrhoids, however no internal hemorrhoids were noted. At this point, a bilateral pudendal block was done. I then used the [place] retractor to further evaluate the anal canal as well as rectum, other than external hemorrhoids no other pathology was noted. I then began excising the external hemorrhoids using the hand-held LigaSure device. The hemorrhoids were noted to be in the left lateral and right anterior positions. Multiple hemorrhoids were excised using the LigaSure. The specimens will be sent to pathology for further review. Hemostasis was noted at all excision sites. I then placed a piece of Gelfoam covered with lidocaine jelly into the rectal vault. The patient tolerated the procedure and was extubated in the operating room postop. She will be transferred to the recovery room in stable condition. Implants Gelfoam covered with lidocaine jelly in the rectal vault Estimated Blood Loss 5 Drains No Packing Yes Pathology Yes Complications No immediate complications Condition Stable Disposition PACU [facility] Billing Surgery - Charge Forward: Surgery Billing
[2023-06-14] MEDS: ALBUTEROL SULFATE (*SP) AEROSOL 1 PUFF 2 PUFF INHALATION (12:44)
== END 2023-06-14 14:08 | disposition home or self-care (01) ==
PROVIDERS: PCP Nurse Practitioner Family; Visit Provider Surgery
PROC: (CPT 46250; principal; 2023-06-14 12:00)
DX: K64.4 Residual hemorrhoidal skin tags (principal); J45.909 Unspecified asthma, uncomplicated; Z79.51 Long term (current) use of inhaled steroids
CPT/HCPCS: 46250; 88304; A9270; J0690; J1100; J1885; J2250; J2405; J2704; J3010; J7120

== ENCOUNTER 2023-09-16 01:13 | Day surgery (SDC) | payer BC, SELFPAY ==
[2023-08-26 13:29] VITALS: BMI 31.2
[2023-09-16 14:44] VITALS: BP 129/75; PULSE 100; RESP 18; TEMP 35.9; O2SAT 100; BMI 30.9
[2023-09-16] MEDS: LACTATED RINGERS 1,000 ML 150 ML IV CONT (14:57)
--- NOTE | 2023-09-16 14:59 | WPDANESEPPF ---
Anes - Initial Pre Proc Eval Procedure: Operation Date: 09/16/23 16:00 Proposed Procedures p Colonoscopy - Leonardo Calvo MD Date/Time: 09/16/23 14:59 Surgeon: Leonardo Calvo MD Pre Op Diagnosis: Hemorrhage of anus/rectum Patient Data Age: 27 Gender: F Height: 1.55 m Weight: 74.1 kg Last Vital Signs Temp 96.7 F L 09/16/23 14:44 Pulse 100 09/16/23 14:44 Resp 18 09/16/23 14:44 BP 129/75 09/16/23 14:44 Pulse Ox 100 09/16/23 14:44 O2 Del Method Room Air 09/16/23 14:44 Allergies Allergy/AdvReac Type Severity Reaction Status Date / Time metoclopramide AdvReac Intermediate Confusion,H Verified 09/16/23 14:42 ALLUCINATIO NS Home Medications Medication Instructions Recorded Confirmed Type atorvastatin 20 mg tablet 20 mg PO DAILY 02/02/22 08/26/23 History ergocalciferol (vitamin D2) 1,250 1,250 mcg PO WEEKLY 09/24/22 08/26/23 History mcg (50,000 unit) capsule methylphenidate HCl 20 mg 27 mg PO DAILY 09/24/22 08/26/23 History tablet,extended release meloxicam 15 mg tablet 15 mg PO DAILY 02/08/23 08/26/23 History albuterol 90 mcg-budesonide 80 2 inh inhalation ONCE PRN 06/10/23 08/26/23 History mcg/actuation HFA aerosol inhaler Shortness Of Breath Or Wheezing Patient hx anesthesia problems: none Family hx anesthesia problems: none Results Review: All pre-operative results and documents have been reviewed as part of the pre-operative evaluation. [facility] Past Medical History Medical History (Updated 08/23/23 @ 10:45 by Richelle Hampton MA) Anemia Anxiety Asthma Elevated cholesterol Encounter for screening examination for sexually transmitted disease IBS (irritable bowel syndrome) Obesity (BMI 30-39.9) Undifferentiated connective tissue disease Surgical History Surgical History H/O: hysterectomy (05/14/22) Robotic assisted total laparoscopic hysterectomy with bilateral salpingectomy/ uterine bleeding History of hysteroscopy (04/09/22) Hscope D&C/ diagnostic laparoscopy History of placement of ear tubes as a child Hx of hemorrhoidectomy Exam under anesthesia, external hemorrhoidectomy involving left lateral and right anterior positions 06/14/23 Family History Family History Grandparent Acute myocardial infarction paternal grandfather Cerebrovascular accident maternal grandfather maternal grandmother Breast cancer maternal grandmother Mother Lupus erythematosus Parkinsons disease Father Acute myocardial infarction Other No significant family history Social History Social History Smoking status: Never smoker Second hand tobacco smoke exposure: No Alcohol intake: former Substance use: former Substance use type: marijuana Last use: 5 YRS AGO Lack of Transportation: No Lack of Food: Never True Current Housing: I Have Housing Concerned About Future Housing: No Difficulty Paying Gas/Electric Bills: No Difficulty Paying for Meds: No Currently Unemployed: No Education: High School Diploma/GED Difficulty w/ Childcare or Family Care: No Living arrangements: with family Additional living arrangements comments: Occupation/Education: occupation Additional occupation/education comments: [employer] Gender identity (if verbalized by the patient): Female Sexual Orientation (if Verbalized by the Patient): Straight or Heterosexual Spiritual care concerns: No Anes - Eval Final PreProcedure Day of Procedure 09/16/23 14:59 Patient weight: obese Heart: regular rate and rhythm Lungs: clear to auscultation Airway: Mallampati scale class II Neurological: alert and oriented Last oral intake: >/= 8 hours ASA classification: III Emergent: no Anesthetic plan: proceed Anesthesia type
--- NOTE | 2023-09-16 15:51 | PM.HPGS ---
History of Present Illness History of Present Illness Consent: Risks, benefits, and alternatives have been discussed and questions answered. Patient agrees to proceed with procedure. Chief complaint: Hemorrhage of anus/rectum Narrative: Clarice Jerez is a 27 year old female with intermittent rectal bleeding, had recent hemorrhoidectomy. Last colonoscopy about 3 years ago. Review of Systems Review of Systems: All systems reviewed & are unremarkable except as noted in HPI and below PMFSH Past Medical History Medical History (Updated 09/16/23 @ 15:52 by Leonardo Calvo MD) Anemia Anxiety Asthma Elevated cholesterol Encounter for screening examination for sexually transmitted disease IBS (irritable bowel syndrome) Obesity (BMI 30-39.9) Rectal bleeding Undifferentiated connective tissue disease Surgical History Surgical History H/O: hysterectomy (05/14/22) Robotic assisted total laparoscopic hysterectomy with bilateral salpingectomy/ uterine bleeding History of hysteroscopy (04/09/22) Hscope D&C/ diagnostic laparoscopy History of placement of ear tubes as a child Hx of hemorrhoidectomy Exam under anesthesia, external hemorrhoidectomy involving left lateral and right anterior positions 06/14/23 Family History Family History Grandparent Acute myocardial infarction paternal grandfather Cerebrovascular accident maternal grandfather maternal grandmother Breast cancer maternal grandmother Mother Lupus erythematosus Parkinsons disease Father Acute myocardial infarction Other No significant family history Social History Social History Smoking status: Never smoker Second hand tobacco smoke exposure: No Alcohol intake: former Substance use: former Substance use type: marijuana Last use: 5 YRS AGO Lack of Transportation: No Lack of Food: Never True Current Housing: I Have Housing Concerned About Future Housing: No Difficulty Paying Gas/Electric Bills: No Difficulty Paying for Meds: No Currently Unemployed: No Education: High School Diploma/GED Difficulty w/ Childcare or Family Care: No Living arrangements: with family Additional living arrangements comments: Occupation/Education: occupation Additional occupation/education comments: [employer] Gender identity (if verbalized by the patient): Female Sexual Orientation (if Verbalized by the Patient): Straight or Heterosexual Spiritual care concerns: No Meds Home Medications and Allergies Home Medications Medication Instructions Recorded Confirmed Type atorvastatin 20 mg tablet 20 mg PO DAILY 02/02/22 08/26/23 History ergocalciferol (vitamin D2) 1,250 1,250 mcg PO WEEKLY 09/24/22 08/26/23 History mcg (50,000 unit) capsule methylphenidate HCl 20 mg 27 mg PO DAILY 09/24/22 08/26/23 History tablet,extended release meloxicam 15 mg tablet 15 mg PO DAILY 02/08/23 08/26/23 History albuterol 90 mcg-budesonide 80 2 inh inhalation ONCE PRN 06/10/23 08/26/23 History mcg/actuation HFA aerosol inhaler Shortness Of Breath Or Wheezing Allergies Allergy/AdvReac Type Severity Reaction Status Date / Time metoclopramide AdvReac Intermediate Confusion,H Verified 09/16/23 14:42 ALLUCINATIO NS Vital Signs Vital Signs - 24 hr 09/16/23 14:44 Temperature 96.7 F L Pulse Rate 100 Respiratory Rate 18 Blood Pressure 129/75 Pulse Oximetry 100 Oxygen Delivery Room Air Exam Const: General: comfortable and no acute distress HENMT: Face/Nose/Sinus: Normal nares present Eyes: General: appearance normal, both eyes and all related structures Neck: Neck: no JVD Resp: Auscultation: clear to auscultation bilaterally Cardio: Rate: regular rate Rhythm: regular rhythm GI: Inspect
[2023-09-16 16:03] VITALS: BP 109/72; PULSE 95; RESP 21; O2SAT 99
[2023-09-16 16:14] VITALS: BP 114/70; PULSE 100; RESP 17; O2SAT 100
[2023-09-16 16:24] VITALS: BP 123/85; PULSE 84; RESP 18; O2SAT 100
== END 2023-09-16 16:35 | disposition home or self-care (01) ==
PROVIDERS: PCP Nurse Practitioner Family; Visit Provider Internal Medicine Gastroenterology
PROC: 0DJD8ZZ Inspection of Lower Intestinal Tract, Via Natural or Artificial Opening Endoscopic (ICD-10-PCS; CPT 45378; principal; 2023-09-16 16:00)
DX: K51.814 Other ulcerative colitis with abscess (principal); K64.8 Other hemorrhoids; D64.9 Anemia, unspecified; F41.9 Anxiety disorder, unspecified; J45.909 Unspecified asthma, uncomplicated; E78.00 Pure hypercholesterolemia, unspecified; F12.90 Cannabis use, unspecified, uncomplicated; E66.9 Obesity, unspecified; Z68.30 Body mass index [BMI] 30.0-30.9, adult; Z79.51 Long term (current) use of inhaled steroids; Z98.890 Other specified postprocedural states; Z80.3 Family history of malignant neoplasm of breast; Z82.49 Family history of ischemic heart disease and other diseases of the circulatory system
CPT/HCPCS: 45378; 88305; J2704; J7120

== ENCOUNTER 2024-03-26 08:10 | Emergency (ER) | payer BC, SELFPAY ==
[2024-03-26 08:20] VITALS: BP 155/67; PULSE 125; RESP 18; TEMP 37.1; O2SAT 100
--- NOTE | 2024-03-26 08:33 | ED_ITS ---
HPI - URI/Sore Throat General Chief Complaint: Upper Respiratory Infection Stated Complaint: Cough/Body Aches/Sore Throat/Ear Pain Source: patient and RN notes reviewed Mode of arrival: ambulatory Limitations: no limitations History of Present Illness HPI Narrative: 28-year-old female with history of asthma presented for complaint of headache, body aches, sinus pressure/congestion, cough, fever/chills. Onset 2 days. Denies sob, wheezing, n/v/d. Taking Dayquil and Nyquil. MD elicited complaint: cough Related Data Home Medications ?Medication ?Instructions ?Recorded ?Confirmed ?Last Taken ?Type atorvastatin 20 mg tablet 20 mg PO DAILY 02/02/22 03/22/24 09/13/23 History ergocalciferol (vitamin D2) 1,250 1,250 mcg PO WEEKLY 09/24/22 03/22/24 09/13/23 History mcg (50,000 unit) capsule methylphenidate HCl 20 mg 27 mg PO DAILY 09/24/22 03/22/24 09/13/23 History tablet,extended release meloxicam 15 mg tablet 15 mg PO DAILY 02/08/23 03/22/24 09/13/23 History albuterol 90 mcg-budesonide 80 2 inh inhalation ONCE PRN 06/10/23 03/22/24 09/13/23 History mcg/actuation HFA aerosol inhaler Shortness Of Breath Or Wheezing Allergies Allergy/AdvReac Type Severity Reaction Status Date / Time metoclopramide AdvReac Intermediate Confusion,H Verified 03/26/24 08:32 ALLUCINATIO NS Review of Systems Review of Systems: CONSTITUTIONAL: Endorses malaise, chills, sweats, fever EYES: Denies visual changes, redness, or discharge ENT: Reports rhinorrhea, congestion, otalgia, sore throat CARDIOVASCULAR: Denies chest pain, palpitations, edema RESPIRATORY: Reports cough, post nasal drainage. Denies dyspnea GASTROINTESTINAL: Denies abdominal pain, nausea, vomiting, diarrhea SKIN: Denies rash MUSCULOSKELETAL: Endorses myalgia NEUROLOGIC: Denies headache PMFSH Past Medical History Medical History Rectal bleeding Undifferentiated connective tissue disease Encounter for screening examination for sexually transmitted disease Anxiety Anemia IBS (irritable bowel syndrome) Elevated cholesterol Obesity (BMI 30-39.9) Asthma Surgical History Surgical History Hx of hemorrhoidectomy Exam under anesthesia, external hemorrhoidectomy involving left lateral and right anterior positions 06/14/23 H/O: hysterectomy (05/14/22) Robotic assisted total laparoscopic hysterectomy with bilateral salpingectom y/ uterine bleeding History of hysteroscopy (04/09/22) Hscope D&C/ diagnostic laparoscopy History of placement of ear tubes as a child Family History Family History Grandparent Acute myocardial infarction paternal grandfather Cerebrovascular accident maternal grandfather maternal grandmother Breast cancer maternal grandmother Mother Lupus erythematosus Parkinsons disease Father Acute myocardial infarction Other No significant family history Social History Social History Smoking status: Never smoker Second hand tobacco smoke exposure: No Alcohol intake: former Substance use: former Substance use type: marijuana Last use: 5 YRS AGO Do You Feel Safe in your Home?: Yes Lack of Transportation: No Lack of Food: Never True Current Housing: I Have Housing Concerned About Future Housing: No Difficulty Paying Gas/Electric Bills: No Difficulty Paying for Meds: No Currently Unemployed: No Education: High School Diploma/GED Difficulty w/ Childcare or Family Care: No Living arrangements: with family Additional living arrangements comments: Occupation/Education: occupation Additional occupation/education comments: [employer] Gender identity (if verbalized by the patient): Female Sexual Orientation (if Verbalized by the Patient): Straight or Heterosexual Spiritual care concerns: No Exam Narrative: GENERAL: Ill-appearing, nontoxic no acute distress. EYES: PERRLA, conjunctivae clear ENT: Mucous membranes moist. TM pearly siddiqui with dull light reflex bilaterally; no tragal tenderness. Oropharynx mildly erythematous without lesions or exudate, no drooling, no hoarseness, no trismus, uvula midline. No tripod positioning, muffled voice, soft palate or pharyngeal wall bulging NECK: Supple. CHEST: Clear to auscultation, breath sounds equal. No wheezing, rhonchi, rales, or stridor. No respiratory distress, speaks in full sentences. HEART: Regular rate and rhythm. No murmur heard. SKIN: Warm, dry NEURO: Alert and oriented x3. PSYCH: Normal mood and affect Course Course Emergency Course: Patient is aware of diagnosis, understands and agrees to treatment plan. Anticipatory guidance given. Patient agrees to follow-up as directed and is aware of reasons to seek care at the emergency department. Portions of this record may have been created with voice recognition software Level of Care: Express Care Visit Vital Signs Vital signs: Vital Signs Temperature 98.7 F 03/26/24 08:20 Pulse Rate 125 H 03/26/24 08:20 Respiratory Rate 18 03/26/24 08:20 Blood Pressure 155/67 H 03/26/24 08:20 Pulse Oximetry 100 03/26/24 08:20 Oxygen Delivery Room Air 03/26/24 08:20 Temperature 98.7 F 03/26/24 08:20 Pulse Rate 125 H 03/26/24 08:20 Respiratory Rate 18 03/26/24 08:20 Blood Pressure 155/67 H 03/26/24 08:20 Pulse Oximetry 100 03/26/24 08:20 Oxygen Delivery Room Air 03/26/24 08:20 reviewed MDM - URI/Sore Throat MDM Narrative Medical decision making narrative: positive influenza. Discussed physical exam findings. Advised supportive measures and signs/symptoms to go to the ER. Pt is appropriate for outpt treatment and f/u. Differential Diagnosis Differential diagnosis: Likely upper respiratory infection, otitis media, sinusitis, viral infection, influenza and pharyngitis Discharge Plan Discharge Clinical Impression: Influenza Patient Disposition: Home, Self-Care Condition: Stable Instructions: Influenza (ED) Additional Instructions: Influenza positive You should avoid crowds until you are fever free for 24 hours without the use of fever reducing medications, or the symptoms are improved Rest. Drink plenty of fluids. Tylenol 1000mg every 8 hours as needed for pain/fever Recommend Flonase spray and Zyrtec (or Claritin/Sparkle) for sinus pressure/congestion over the counter Cough syrup may cause drowsiness; avoid driving or take it at night time. Follow up with your primary care provider as needed Go to the ER for worsening symptoms or concerns Patient Language: Persian Prescriptions: No Action atorvastatin 20 mg tablet 20 mg PO DAILY meloxicam 15 mg tablet 15 mg PO DAILY methylphenidate HCl 20 mg tablet extended release 27 mg PO DAILY ergocalciferol (vitamin D2) 1,250 mcg (50,000 unit) capsule 1,250 mcg PO WEEKLY Rx Instructions: WEDNESDAY mesalamine 1.2 gram tablet,delayed release (DR/EC) 2.4 g PO DAILY Qty: 120 0RF Xifaxan 550 mg tablet 550 mg PO TID 14 Days Qty: 42 0RF albuterol-budesonide 90-80 mcg/actuation Hfa Aerosol Inhaler 2 inh INHALATION ONCE PRN (Reason: Shortness Of Breath Or Wheezing) Rx Instructions: as a single dose; may repeat up to 6 doses per day (12 inhalations) hydrocortisone 2.5 % cream with perineal applicator 1 applic RECTAL DAILY PRN (Reason: hemorrhoids) Qty: 30 0RF Follow-up/Referrals: UNKNOWN,DOCTOR [Primary Care Provider] - Time of Disposition: 08:38
[2024-03-26 08:38] LABS: EDCOVIDSCREEN Negative (Negative); EDINFLUASCREEN Positive (Negative); EDINFLUBSCREEN Negative (Negative)
--- OUTSIDE RECORDS SUMMARY | 2024-03-30 10:01 | XMS_ITS | Clinical Summary ---
Author Organization [facility] Address [address] [place] [address] Phone Care Team Providers Care Graining Press Operator Name Role Phone Addison Weinstein APRN, ENTRY LEVEL INSTALLATION TECHNICIAN Primary Care Provider Allergies Active Allergy Reactions Criticality Noted Date Comments Metoclopramide Hcl Anxiety Medium 03/15/2016 Medications Erndcnqn-Kfy-Qc- FA ( VITAMINS PO) Take 1 Tab by mouth daily. Active ibuprofen (MOTRIN) 600 MG Tablet Take 1 Tab by mouth every 6 hours as needed for Pain or Other (Cramping). 40 Tab 0 7 Active Additional Information Patient not taking.Reported on 01/12/2018 ondansetron (ZOFRAN-ODT) 4 MG TABLET DISPERSIBLE Take 4 mg by mouth every 8 hours as needed. Active fluticasone (FLONASE) 50 MCG/ACT SuspensionIndica tions:Upper respiratory tract infection, unspecified type 1 [place] by Nasal route daily. Use in each nostril as directed. 1 Bottle 9 Active Additional Information Patient not taking.Reported on 11/30/2019 IRON PO Take by mouth. Activ e ondansetron (ZOFRAN) 4 MG Tablet Take 1 Tab by mouth every 8 hours as needed for Nausea - 1st line. 10 Tab 0 Active Additional Information Patient not taking.Reported on 11/30/2019 fluticasone (FLONASE) 50 MCG/ACT Suspension 2 Sprays by Nasal route daily. Use in each nostril as directed. 9.9 mL 1 Active Active Problems Problem Noted Date Diagnosed Date Term , unspecified trimester 03/16/2016 Encounters Date Type Department Care Team Description 01/11/2024 7:00 AM MOBILE HOME PARK MANAGER - 01/11/2024 11:59 PM MOBILE HOME PARK MANAGER Hospital Encounter [facility] Ultrasound 1 [facility] [place] [address] Addison Weinstein, VARNISHER PLASTICOATER, ENTRY LEVEL INSTALLATION TECHNICIAN Discharge Disposition: Discharged to home or Selfcare 01/11/2024 Travel from Last 3 Months Immunizations Immunization Administration Dates Next Due TDAP Vaccine 03/17/2016 Family History Medical History Relation Name Comments Lupus Mother Parkinsonism Mother Stroke Sister Relation Name Status Comments Mother Sister Social History Tobacco Use Types Packs/Day Years Used Date Smoking Tobacco: Never Smokeless Tobacco: Never Alcohol Use Standard Drinks/Week Comments No 0 (1 standard drink = 0.6 oz pur e alcohol) Sexually Active Control Partners Comments Yes Male Comments No Sex and Gender Information Value Date Recorded Sex Assigned at Not on file Legal Sex Female 9:10 PM CDT Gender Identity Not on file Sexual Orientation Not on file Last Filed Vital Signs Vital Sign Reading Time Taken Comments Blood Pressure 120/87 08/20/2023 7:13 PM CDT Pulse 71 08/20/2023 7:13 PM CDT Temperature 36.6 ??C (97.8 ??F) 08/20/2023 6:13 PM CD T Respiratory Rate 16 08/20/2023 7:13 PM CDT Oxygen Saturation 100% 08/20/2023 7:13 PM CDT Inhaled Oxygen Concentration - - Weight 77.1 kg (170 lb) 08/20/2023 6:13 PM CDT Height 154.9 cm (5' 1 ) 08/20/2023 6:13 PM CDT Body Mass Index 32.12 08/20/2023 6:13 PM CDT Plan of Treatment Health Maintenance Due Date Last Done Comments Hepatitis C Virus (HCV) Screening 1995 Hepatitis B Immunization (1 of 3 - 19+ 3-dose series) 09/29/2014 Influenza Immunization (#1) 2023 SARS-COV-2 Immunization ( - season) 2023 Td Immunization Every 10 Years (Adults With 1 Tdap) 01/24/2030 01/25/2020, 03/17/2016 Respiratory Syncytial Virus (RSV) Immunization (Adult) (1 - 1-dose 75+ series) 09/29/2070 DTaP/Tdap/Td Immunization Discontinued 2019, 03/17/2016 Meningococcal Immunization (ACWY) Aged Out No longer eligible based on patient's age to complete this topic Pneumococcal Immunization Combined Aged Out No longer eligible based on patient's age to complete this topic Rotavirus Immunization Aged Out No lo nger eligible based on patient's age to complete this topic Procedures Procedure Name Priority Date/Time Associated Diagnosis Comments US SOFT TISSUE HEAD AND NECK Routine 01/11/2024 7:19 AM MOBILE HOME PARK MANAGER Localized swelling, mass and lump, neck from Last 3 Months Results * US SOFT TISSUE HEAD AND NECK (01/11/2024 7:19 AM MOBILE HOME PARK MANAGER) Anatomical Region Laterality Modality BODY N/A Ultrasound 01/13/2024 2:43 PM MOBILE HOME PARK MANAGER Impressions 01/13/2024 2:46 PM MOBILE HOME PARK MANAGER IMPRESSION: Probable lymph node in the neck measuring 0.9 x 0.3 x 0.9 cm. Narrative 01/13/2024 2:46 PM MOBILE HOME PARK MANAGER EXAM DESCRIPTION: ?? US SOFT TISSUE HEAD AND NECK REASON FOR STUDY: Localized swelling, mass/lump of the neck for 1 year changing in size and tender. TECHNIQUE: A Dynamic assessment was performed of the ??left neck ??by the contract manager, with selected grayscale and color Doppler images acquired and recorded in PACS. COMPARISON: ?? None. FINDINGS: There is no identified mass or fluid collection. ??There is a probable lymph node in the neck measuring 0.9 x 0.3 x 0.9 cm. THIS IS AN ELECTRONICALLY VERIFIED FINAL REPORT 01/13/2024 2:43 PM - Electronically signed by ??Edi Moe M.D. CH: D: ??01/13/2024 2:43 PM T: ??01/13/2024 2:43 PM Report ID: [id number] Reading Location: ??[id number] Procedure Note Edi Moe Jr., MD - 01/13/2024 EXAM DESCRIPTION: US SOFT TISSUE HEAD AND NECK REASON FOR STUDY: Localized swelling, mass/lump of the neck for 1 year changing in size and tender. TECHNIQUE: A Dynamic assessment was performed of the left neck by the contract manager, with selected grayscale and color Doppler images acquired and recorded in PACS. COMPARISON: None. FINDINGS: There is no identified mass or fluid collection. There is a probable lymph node in the neck measuring 0.9 x 0.3 x 0.9 cm. THIS IS AN ELECTRONICALLY VERIFIED FINAL REPORT 01/13/2024 2:43 PM - Electronically signed by Edi Moe M.D. CH: WALTER Report ID: [id number] Reading Location: [id number] IMPRESSION: Probable lymph node in the neck measuring 0.9 x 0.3 x 0.9 cm. Addison Weinstein APRN, MARIJA G US ORDERABLES Final Result from Last 3 Months Insurance [facility] Advance Directives * Full Code (Latest Code Status on File) Date Activated Date Inactivated Comments 03/15/2016 12:27 PM 03/18/2016 7:21 PM CPR-Full Haseeb atment: FULL ARREST: Attempt Resuscitation/CPR wit intubation and mechanical ventilation. PRE-ARREST: Use entire range of life support measures to stabilize the patient. * Full Code Date Activated Date Inactivated Comments 03/13/2016 3:29 PM 03/13/2016 7:13 PM CPR-Full Treat ment: FULL ARREST: Attempt Resuscitation/CPR wit intubation and mechanical ventilation. PRE-ARREST: Use entire range of life support measures to stabilize the patient. * Full Code Date Activated Date Inactivated Comments 03/06/2016 11:53 AM 03/06/2016 6:27 PM CPR-Full Treatment: FULL ARREST: Attempt Resuscitation/CPR wit intubation and mechanical ventilation. PRE-ARREST: Use entire range of life support measures to stabilize the patient. * Full Code Date Activated Date Inactivated Comments 03/01/2016 10:16 PM 03/02/2016 1:47 AM CPR-Full Treatment: FULL ARREST: Attempt Resuscitation/CPR wit intubation and mechanical ventilation. PRE-ARREST: Use entire range of life support measures to stabilize the patient. * Full Code Date Activated Date Inactivated Comments 02/11/2016 1:10 AM 02/11/2016 8:25 AM CPR-Full Haseeb atment: FULL ARREST: Attempt Resuscitation/CPR wit intubation and mechanical ventilation. PRE-ARREST: Use entire range of life support measures to stabilize the patient. Care Teams Graining Press Operator Relationship Specialty Start Date End Date Addison Weinstein, VARNISHER PLASTICOATER, ENTRY LEVEL INSTALLATION TECHNICIAN [address] [place] [address] [place] [address] PCP - General Advanced Practice Nurse 08/20/23
--- OUTSIDE RECORDS SUMMARY | 2024-03-30 10:01 | XMS_ITS | Referral Summary ---
Author Organization [facility] [employer] Address [address] [place] [address] Care Team Providers Care Pharmaceutical Scientist Name Role Phone Jayesh Camacho APRN-WALL WORKER Primary Care Provider Source Comments [facility] [employer],non-owned Affiliates and Associated Physician Practices is amultiple site organization consisting of ambulatory clinics and hospital sitesin [place], [place], [place] and [place]. This disclosure is being madepursuant to the Care Everywhere program and may not contain all information available regarding this patient. Last updated 17.[facility] [employer] Allergies Active Allergy Reactions Criticality Noted Date Comments Metoclopramide Nausea and/or Vomiting,Other Medium 10/2016 anxiety Medications * Be aware that medications may not be up to date on this document. Alwaysverify current medications with the patient. Medication Sig Dispensed Refills Start Date End Date Status Methylphenidate ER (Metadate Er; Ritalin SR) 20 MG tablet Take 1 (one) tablet by mouth once daily 09/24/2022 Active vitamin D, ergocalciferol, (Drisdol) 1.25 MG (26827 UT) capsule Take 1 (one) capsule by mouth every 7 days 11/16/2022 Active atorvastatin (Lipitor) 20 MG tablet Take 1 (one) tablet by mouth once daily 11/11/2022 Active albuterol HFA (Proventil; Ventolin; Proair) 108 (90 Base) MCG/ACT inhaler INHALE 2 PUFFS FOUR TIMES DAILY NEEDED FOR SHORTNESS OF BREATH OR WHEEZING Active Social History Tobacco Use Types Packs/Day Years Used Date Smoking Tobacco: Never Smokeless Tobacco: Never Tobacco Cessation:Counseling Given: Not Answered Alcohol Use Standard Drinks/Week Comments Never 0 (1 standard drink = 0.6 oz pur e alcohol) Sex and Gender Information Value Date Recorded Sex Assigned at Not on file Gender Identity Not on file Sexual Orientation Not on file Last Filed Vital Signs Vital Sign Reading Time Taken Comments Blood Pressure 122/80 12/23/2022 8:42 AM CDT Pulse 85 12/23/2022 8:42 AM CDT Temperature 37.3 ??C (99.1 ??F) 12/23/2022 8:42 AM CD T Respiratory Rate - - Oxygen Saturation - - Inhaled Oxygen Concentration - - Weight 81.6 kg (180 lb) 12/23/2022 8:42 AM CDT Height 154.9 cm (5' 1 ) 12/23/2022 8:42 AM CDT Body Mass Index 34.01 12/23/2022 8:42 AM CDT Plan of Treatment Not on file Insurance Payer Benefit Plan / Group Subscriber ID Effective Dates Phone Address Type [facility] MEDICAID [id number] Effective for all dates ATTN CLAIMS DEPARTMENT [address] [address] Medicaid Managed Care SELF PAY NO INSURANCE SELF PAY NO INSURANCE Effective for all dates [place] Self Pay SELF PAY NO INSURANCE SELF PAY NO INSURANCE Effective for all dates [place] SELF PAY NO INSURANCE SELF PAY NO INSURANCE Effective for all dates [place] SELF PAY NO INSURANCE SELF PAY NO INSURANCE Effective for all dates [place] Pay SELF PAY NO INSURANCE SELF PAY NO INSURANCE Effective for all dates [place] Pay SELF PAY NO INSURANCE SELF PAY NO INSURANCE Effective for all dates [place] Self Pay [employer]UE [employer] OUT OF STATE PPO [id number] 03/08/2022-Presmelissa nt [address] [place] [address] PPO MEDICAID - OUT OF STATE [place] [id number] Effective [place] [address] Medicaid [facility] [place] [facility] [place] [id number] Effective for all dates ATTN CLAIMS DEPARTMENT [address] [place] [address] Medicaid Managed Care MEDICAID - OUT OF STATE MEDICA[place] [id number] Effective [place] [address] Medicaid [facility] MEDICAID [id number] Effective for all dates ATTN CLAIMS DEPARTMENT [address] [place] [address] Medicaid Managed Care MEDICAID - OUT OF [facility] MEDICAID - [place] PUBLIC [place] [id number] Effective for all dates [address] [address] [place] [address] Medicaid [facility] MEDICAID [id number] Effective for all dates ATTN CLAIMS DEPARTMENT [address] [place] [address] Medicaid Managed Care MEDICAID - OUT OF [facility] MEDICAID - [place] PUBLIC [place] [id number] Effective for all dates [address] [address] [place] [address] Medicaid [facility] MEDICAID [id number] Effective for all dates ATTN CLAIMS DEPARTMENT [address] [place] [address] Medicaid Managed Care MEDICAID - OUT OF STATE MEDICA[place] [id number] Effective for all dates [address] [address] [place] [address] Medicaid Care Teams Pharmaceutical Scientist Relationship Specialty Start Date End Date Jayesh Camacho, OPTICIAN MANAGER-WALL WORKER [address] [place] [address] PCP - General 04/24/22
--- OUTSIDE RECORDS SUMMARY | 2024-03-30 10:01 | XMS_ITS | Encounter Summary ---
Author Organization [facility] Address [address] [facility] [place] [address] Phone Care Team Providers Care Judicial Registrar Name Role Phone Jayesh Camacho APRN, MARIJA Primary Care Provider Addison Weinstein APRN, CNP Primary Care Provider Encounter Details Date Type Department Care Team (Late st Contact Info) Description 10/09/2021 Transcribe Orders [facility] Scheduling [address] [place] [id number] Sung Dunn MD [address] [place] [address] Social History Tobacco Use Types Packs/Day Years Used Date Smoking Tobacco: Never Smokeless Tobacco: Never Alcohol Use Standard Drinks/Week Comments No 0 (1 standard drink = 0.6 oz pur e alcohol) Sexually Active Control Partners Comments Yes Male Comments Yes Sex and Gender Information Value Date Recorded Sex Assigned at Not on file Legal Sex Female 9:10 PM CDT Gender Identity Not on file Sexual Orientation Not on file documented as of this encounter Plan of Treatment Not on file documented as of this encounter Visit Diagnoses Not on filedocumented in this encounter Care Teams Judicial Registrar Relationship Specialty Start Date End Date Jayesh Camacho APRN, MARIJA [address] [place] [address] PCP - General Certified Nurse Practitioner 02/11/16 08/19/23 Addison Weinstein, IT CORPORATE RECRUITER, RAPID OUTSOLE STITCHER [address] [place] [address] PCP - General Advanced Practice Nurse 08/20/23 documented as of this encounter
--- OUTSIDE RECORDS SUMMARY | 2024-03-30 10:01 | XMS_ITS | CONTINUITY OF CARE DOCUMENT ---
Author Name alfred simon Address Unknown Organization [facility] Office Address [address] [place] [address] Phone [phone] Care Team Providers Care Television Presenter Name Role Phone Gregory Olivas MD Unavailable [phone] ANGELITO TYSON Unavailable INSURANCE PROVIDERS Payer name Policy type / Coverage type [place] red green party ID [facility] [id number]
--- OUTSIDE RECORDS SUMMARY | 2024-03-30 10:01 | XMS_ITS | Clinical Summary ---
[facility] Organization [facility] Address [address] [address] Care Team Providers Care Ergonomics Engineer Name Role Phone Unavailable Primary Care Provider Unavailabl e Medications No known medications Active Problems No known active problems Social History Tobacco Use Types Packs/Day Years Used Date Smoking Tobacco: Never Assessed Comments Unknown Sex and Gender Information Value Date Recorded Sex Assigned at Not on file Legal Sex Female 2:28 PM CDT Gender Identity Not on file Sexual Orientation Not on file Last Filed Vital Signs Vital Sign Reading Time Taken Comments Blood Pressure 113/79 09/07/2022 2:43 PM CDT Pulse 97 09/07/2022 2:43 PM CDT Temperature 36.4 ??C (97.5 ??F) 09/07/2022 2:43 PM CD T Respiratory Rate 18 09/07/2022 2:43 PM CDT Oxygen Saturation 97% 09/07/2022 2:43 PM CDT Inhaled Oxygen Concentration - - Weight 76.5 kg (168 lb 10.4 oz) 09/07/2022 2:43 PM CDT Height 154.9 cm (5' 1 ) 09/07/2022 2:43 PM CDT Body Mass Index 31.87 09/07/2022 2:43 PM CDT Plan of Treatment Health Maintenance Due Date Last Done Comments PNEUMOCOCCAL VACCINE 0-64 YE ARS (1 of 2 - PCV) 09/29/2001 HEPATITIS B VACCINES (1 of 3 - 19+ 3-dose series) 09/29/2014 CERVICAL CANCER SCREENING 09/29/2016 INFLUENZA VACCINE (#1) 2023 DTAP/TDAP/TD VACCINES (2 - T d or Tdap) 03/17/2026 03/17/2016 HPV VACCINES Aged Out No longer eligi ble based on patient's age to complete this topic Insurance [employer] CHOICE
--- OUTSIDE RECORDS SUMMARY | 2024-03-30 10:01 | XMS_ITS | Clinical Summary ---
Author Organization [facility] Address [address] [place] [address] Care Team Providers Care Materials Buyer Name Role Phone Jayesh Camacho APRN-MACHINE FORMER Primary Care Provider Source Comments [facility],non-owned Affiliates and Associated Physician Practices is amultiple site organization consisting of ambulatory clinics and hospital sitesin [place], [place], [place] and [place]. This disclosure is being madepursuant to the Care Everywhere program and may not contain all information available regarding this patient. Last updated 17.[facility] Allergies Active Allergy Reactions Criticality Noted Date [...] Active vitamin D, ergocalciferol, (Drisdol) 1.25 MG (05096 UT) capsule Take 1 (one) capsule by [...] 12/23/2022 8:42 AM CDT Plan of Treatment Health Maintenance Due Date Last Done Comments PAP SMEAR 1995 HIV SCREENING 09/29/2010 HEPATITIS C SCREENING 09/25/2013 DTAP/TDAP/TD VACCINES (1 - Tdap) 09/29/2014 HEPATITIS B VACCINE (1 of 3 - 19+ 3-dose series) 09/29/2014 COVID-19 VACCINE ( - 2023-2 5 season) 2023 INFLUENZA VACCINE (#1) 2023 DEPRESSION SCREENING 03/08/2024 ZOSTER VACCINE (1 of 2) 09/29/2045 HIB VACCINE Aged Out No longer eligi ble based on patient's age to complete this topic HPV VACCINE Aged Out No longer eligi ble based on patient's age to complete this topic MENINGOCOCCAL (Group B) VACCINE Aged Out No longer eligible based on patient's age to complete this topic MENINGOCOCCAL VACCINE Aged Out No lilibeth amanda eligible based on patient's age to complete this topic PNEUMOCOCCAL VACCINE Aged Out No long er eligible based on patient's age to complete this topic Insurance Payer Benefit Plan / Group Subscriber ID Effective Dates Phone Address Type [facility] MEDICAID [id number] Effective for all dates ATTN CLAIMS DEPARTMENT [address] [address] Medicaid Managed Care SELF PAY NO INSURANCE SELF PAY NO INSURANCE Effective for all dates [place] Self Pay SELF PAY NO INSURANCE SELF PAY NO INSURANCE Effective for all dates [place] Self [place] SELF PAY NO INSURANCE SELF PAY NO INSURANCE Effective for all dates [place] SELF PAY NO INSURANCE SELF PAY NO INSURANCE Effective for all dates [place] SELF PAY NO INSURANCE SELF PAY NO INSURANCE Effective for all dates [place] SELF PAY NO INSURANCE SELF PAY NO INSURANCE Effective for all dates [place] Self [place] [employer] [employer]UE [employer]OSS OUT OF [facility] PPO [id number] 03/08/2022-Prese nt [address] [place] [address] PPO MEDICAID - OUT OF STATE MEDICA[place] [id number] Effective for all dates [address] [address] [place] [address] Medicaid [facility] MEDICAID [id number] Effective for all dates ATTN CLAIMS DEPARTMENT [address] [place] [address] Medicaid Managed Care MEDICAID - OUT OF STATE MEDICA[place] [id number] Effective for all dates [address] [address] [place] [address] Medicaid [facility] MEDICAID [id number] Effective for all dates ATTN CLAIMS DEPARTMENT [address] [place] [address] Medicaid Managed Care MEDICAID - OUT OF STATE MEDICA[place] [id number] Effective for all dates [address] [address] [place] [address] Medicaid [facility] MEDICAID [id number] Effective for all dates ATTN CLAIMS DEPARTMENT [address] [place] [address] Medicaid Managed Care MEDICAID - OUT OF STATE MEDICA[place] [id number] Effective for all dates [address] [address] [place] [address] Medicaid [facility] MEDICAID [id number] Effective for all dates ATTN CLAIMS DEPARTMENT [address] [place] [address] Medicaid Managed Care MEDICAID - OUT OF STATE MEDICA[place] [id number] Effective for all dates [address] [address] [place] [address] Medicaid Care Teams Materials Buyer Relationship Specialty Start Date End Date Jayesh Camacho, BOOKKEEPING SERVICE SALES AGENT-MACHINE FORMER [address] [place] [address] PCP - General 04/24/22
--- OUTSIDE RECORDS SUMMARY | 2024-03-30 10:01 | XMS_ITS | Patient Health Summary ---
Author Organization [facility] Address [address] [place] [address] Care Team Providers Care Child Psychology Teacher Name Role Phone Jayesh Camacho APRN-BREAD MOLDER Primary Care Provider Note from [facility],non-owned Affiliates and Associated Physician Practices is amultiple site organization consisting of ambulatory clinics and hospital sitesin [place], [place], [place] and [place]. This disclosure is being madepursuant to the Care Everywhere program and may not contain all information available regarding this patient. Last updated 17.[facility] Allergies * Metoclopramide(Nausea and/or Vomiting,Other) -Medium Criticality Medications * Be aware that medications may not be up to date on this document. Alwaysverify current medications with the patient. * Methylphenidate ER (Metadate Er; Ritalin SR) 20 MG tablet(Started 09/24/2022) Take 1 (one) tablet by mouth once daily * vitamin D, ergocalciferol, (Drisdol) 1.25 MG (29186 UT) capsule(Started 11/16/2022) Take 1 (one) capsule by mouth every 7 days * atorvastatin (Lipitor) 20 MG tablet(Started 11/11/2022) Take 1 (one) tablet by mouth once daily * albuterol HFA (Proventil; Ventolin; Proair) 108 (90 Base) MCG/ACT inhaler INHALE 2 PUFFS FOUR TIMES DAILY NEEDED FOR SHORTNESS OF BREATH OR WHEEZING Social History Tobacco Use Types Packs/Day Years [...] Mass Index 34.01 12/23/2022 8:42 AM CDT Care Teams Child Psychology Teacher Relationship Specialty Start Date End Date Jayesh Camacho, FIELD PIPELINES SUPERVISOR-BREAD MOLDER [address] [place] [id number] PCP - General 04/24/22
--- OUTSIDE RECORDS SUMMARY | 2024-03-30 10:01 | XMS_ITS | Data Portability ---
Author Organization [place] [employer] Main Office Address [address] [place] [address] Assessment No assessment recorded. Plan of Treatment Reminders Order Date Submit Date Provider Last Modified By Organization Details Last Modified Time Details Appointments Follow Up 30 2024 09:30A Jose Huynh NP Not available Not available Not available Lab TSH, serum or plasma [address] (Lab), [address] [place], [address], 08/06/2022 09:21:07 RAÚL + rf (antinucl ear antibodie s + rheumatoi d factor), quantitat marta, serum 2022 023 [facility] (Lab), [address] [place], [address], 09/03/2022 12:24:55 C-reactiv e protein, quantitat marta, serum or plasma [address] (Lab), [address] [place], [address], 08/06/2022 09:53:52 erythrocy te sedimenta tion rate, QN, blood [address] (Lab), [address] [place], [address], 08/06/2022 09:55:56 vitamin D, 25-hydrox y, total, serum [address] (Lab), [address] [place], [address], 08/06/2022 09:22:28 drug screen, urine 2022 023 [place] [address] [facility] [facility] [employer] [facility], [address], [place], [address], 08/06/2022 09:19:35 lipid panel, serum [address] (Lab), [address] [place], [address], 08/06/2022 09:59:07 CMP, serum or plasma [address] (Lab), [address] [place], [address], 08/06/2022 09:56:50 iron + TIBC + ferritin, serum [address] (Lab), [address] [place], [address], 08/06/2022 09:55:34 vitamin B12 + folate, serum or blood [address] (Lab), [address] [place], [address], 08/06/2022 09:57:11 CBC [address] (Lab), [address] [place], [address], 08/06/2022 09:56:13 drug of abuse panel, urine 2023 024 EMILY [facility] (Lab), [address] [place], [address], 12/23/2023 19:50:26 lipid panel, serum 2023 024 [facility] Add On Lab Orders, [address], [place], [address], 12/23/2023 20:28:42 TSH, serum or plasma 2023 024 [facility] Add On Lab Orders, [address], [place], [address], 12/23/2023 20:28:42 Referral cardiolog ist referral [email or web address] [place] [address] Heart And Vascular Referral Fax Line, [address], [facility] [address], [place], [address], 09/14/2022 15:40:33 Procedures None recorded. Surgeries None recorded. Imaging US, neck, soft tissue - *Please call pt to schedule* 2023 024 [facility], [address] [place], [address], 01/13/2024 15:49:09 Medication Orders meloxicam 15 mg tablet 2022 023 [email or web address] [facility] #96551, [address], [place], [id number], 12/23/2023 08:05:51 prednison e 20 mg tablet 2022 023 [email or web address] [facility] #87634, [address], [place], [id number], 12/23/2023 08:06:04 meloxicam 15 mg tablet 2022 023 [email or web address] [facility] #41661, [address], [place], [id number], 12/23/2023 08:12:13 methylphe nidate ER 27 mg tablet,ex tended release 24 hr 2022 023 [email or web address] [facility] #79033, [address], [place], [id number], 12/23/2023 08:06:00 albuterol sulfate HFA 90 mcg/actua tion aerosol inhaler 2023 024 [facility] #63628, [address], [place], [id number], 12/23/2023 08:18:22 atorvasta tin 20 mg tablet 2023 024 [facility] #07710, [address], [place], [id number], 12/23/2023 08:18:22 ergocalci ferol (vitamin D2) 1,250 mcg (50,000 unit) capsule 2023 024 [email or web address] [facility] #24869, [address], [place], [id number], 12/23/2023 08:22:29 meloxicam 15 mg tablet 2023 024 [email or web address] [facility] #00778, [address], [place], [id number], 12/23/2023 08:22:29 methylphe nidate ER 27 mg tablet,ex tended release 24 hr 2024 025 [facility] #77006, [address], [place], [id number], 03/23/2024 08:52:47 Patient TargetsNo targets recorded. Patient InstructionsNo instructions recorded. Reason for Referral [facility] [employer] Referral for [facility] history of Cardiovascular disease Referring Physician: Jayesh Camacho, Family Medicine, Encounter Date: 08/06/2022 Results Created Date Observation Date Name Description Value Unit Range Abnormal Flag Note LastModifiedBy Organization Detail LastModifiedTime 08/07/1908/06/2022 CBC W/O DIFFE RENTI AL white blood cells 6.2 x10'3 /uL 4.2-10 .8 Not Available [facility] (Lab) [address] [place], [address], 08/06/2022 19:02:41 08/07/19 23 08/06/2022 CBC W/O DIFFE RENTI AL red blood cells 4.76 x10'6 /uL 3.80-5 .20 Not Available [facility] (Lab) [address] [place], [address], 08/06/2022 19:02:41 08/07/19 23 08/06/2022 CBC W/O DIFFE RENTI AL hemoglobin 13.6 g/dL 12.0-1 5.6 Not Available [facility] (Lab) [address] [place], [address], 08/06/2022 19:02:41 08/07/19 23 08/06/2022 CBC W/O DIFFE RENTI AL hematocrit 41.3 % 35.7-4 5.7 Not Available [facility] (Lab) [address] [place], [address], 08/06/2022 19:02:41 08/07/19 23 08/06/2022 CBC W/O DIFFE RENTI AL mean red cell volume 86.8 fL 82.0-9 9.0 Not Available [facility] (Lab) [address] [place], [address], 08/06/2022 19:02:41 08/07/19 23 08/06/2022 CBC W/O DIFFE RENTI AL mean red cell hemoglobin 28.6 pg 27.0-3 3.0 Not Available [facility] (Lab) [address] [place], [address], 08/06/2022 19:02:41 08/07/19 23 08/06/2022 CBC W/O DIFFE RENTI AL mean RBC HGB concentratio n 32.9 g/dL 31.0-3 6.0 Not Available [facility] (Lab) [address] [place], [address], 08/06/2022 19:02:41 08/07/19 23 08/06/2022 CBC W/O DIFFE RENTI AL red cell distribution width 12.1 % 11.8-1 5.5 Not Available [facility] (Lab) [address] [place], [address], 08/06/2022 19:02:41 08/07/19 23 08/06/2022 CBC W/O DIFFE RENTI AL platelets 293 x10'3 /uL 150-40 0 Not Available [facility] (Lab) [address] [place], [address], 08/06/2022 19:02:41 08/07/1908/06/2022 CBC W/O DIFFE RENTI AL mean platelet volume 10.4 fL 9.0-12 .4 Not Available [facility] (Lab) [address] [place], [address], 08/06/2022 19:02:41 08/07/19 23 08/06/2022 LIPID PANEL cholesterol 268 mg/dL 140-19 9 high NIH MICHAEL NSUS RECOM MENDA TION FOR SUSAN STERO L: ADULT CHILD LOW RISK: <200 <170 BORDE RLINE : <200- 239 ----- HIGH RISK: >240 >200 Not Available [facility] (Lab) [address] [place], [address], 08/06/2022 19:19:36 08/07/19 23 08/06/2022 LIPID PANEL triglyceride s 76 mg/dL 0-150 NIH MICHAEL NSUS REPOR T RECOM MENDA TION FOR TRIGL YCERI MALLORY: ADULT CHILD LOW RISK: <150 ----- BODER LINE: 150-1 99 ----- HIGH RISK: >200 ----- Not Available [facility] (Lab) [address] [place], [address], 08/06/2022 19:19:36 08/07/19 23 08/06/2022 LIPID PANEL HDL cholesterol 66 mg/dL 40- Not Available [facility] (Lab) [address] [place], [address], 08/06/2022 19:19:36 08/07/19 23 08/06/2022 LIPID PANEL LDL cholesterol, calculated 187 mg/dL 0-130 high NIH MICHAEL NSUS REPOR T RECOM MENDA TIONS FOR LDL: ADULT CHILD LOW RISK <130 <110 (OPTI MAL LDL) <100 ----- SANDRA RLINE : 130-1 59 ----- HIGH RISK: >160 >130 A TRIGL YCERI DE RESUL T >400 INVAL IDATE S THE CALCU LATIO N FOR LDL FRACT IONAT ION - THE LDL RESUL T WILL NOT BE REPOR JAMAR. Not Available [facility] (Lab) [address] [place], [address], 08/06/2022 19:19:36 08/07/19 23 08/06/2022 COMPR EHENS MARTA METAB OLIC PANEL sodium 137 mmol/ L 137-14 5 Not Available [facility] (Lab) [address] [place], [address], 08/06/2022 19:19:40 08/07/19 23 08/06/2022 COMPR EHENS MARTA METAB OLIC PANEL potassium 4.0 mmol/ L 3.5-5. 1 Not Available [facility] (Lab) [address] [place], [address], 08/06/2022 19:19:40 08/07/19 23 08/06/2022 COMPR EHENS MARTA METAB OLIC PANEL chloride 103 mmol/ L 98-107 Not Available [facility] (Lab) [address] [place], [address], 08/06/2022 19:19:40 08/07/19 23 08/06/2022 COMPR EHENS MARTA METAB OLIC PANEL carbon dioxide 23 mmol/ L 22-30 Not Available [facility] (Lab) [address] [place], [address], 08/06/2022 19:19:40 08/07/19 23 08/06/2022 COMPR EHENS MARTA METAB OLIC PANEL anion gap 15.0 mmol/ L 14-22 Not Available [facility] (Lab) [address] [place], [address], 08/06/2022 19:19:40 08/07/19 23 08/06/2022 COMPR EHENS MARTA METAB OLIC PANEL glucose 96 mg/dL 70-99 Not Available [facility] (Lab) [address] [place], [address], 08/06/2022 19:19:40 08/07/19 23 08/06/2022 COMPR EHENS MARTA METAB OLIC PANEL BUN 12 mg/dL 8-19 Not Available [facility] (Lab) [address] [place], [address], 08/06/2022 19:19:40 08/07/19 23 08/06/2022 COMPR EHENS MARTA METAB OLIC PANEL creatinine 0.59 mg/dL 0.66-1 .25 low Not Available [facility] (Lab) [address] [place], [address], 08/06/2022 19:19:40 08/07/19 23 08/06/2022 COMPR EHENS MARTA METAB OLIC PANEL GFR >60 Refer ence Range : [place] GFR Healt hy Adult : >60 mL/mi n/1.7 3 m2 Chron ic Kidne y Disea se: 15-60 mL/mi n/1.7 3 m2 Kidne y Failu re: <15/m L/min /1.73 m2 www.n iddk. nih.g ov The MDRD study equat ion has not been valid ated in child roselyn <18 years of age; pregn ant women ; the elder ly >85 years of age; or in some racia l or ethni c subgr oups, such as Hispa nics. Outsi de the valid ated karel eters , estim ated GFR is less accur ate, requi ring clini emigdio judgm ent on a case- by-ca se basis . Clini emigdio inter preta tion for other races and ages must be made by the clini teresa. The MDRD study equat ion has not been valid ated for the evalu ation of serum creat inine relat ed to nutri valarie l statu s or medic ation usage . For perso ns <18 years of age, a pedia tric GFR calcu lator is avail able on the [facility] websi te: https ://prashant w.avelina leger.o rg/pr ofess ional s/kdo qi/gf r_cal culat or Not Available [facility] (Lab) [address] [place], [address], 08/06/2022 19:19:40 08/07/19 23 08/06/2022 COMPR EHENS MARTA METAB OLIC PANEL alkaline phosphatase 71 U/L 38-126 Not Available [facility] (Lab) [address] [place], [address], 08/06/2022 19:19:40 08/07/19 23 08/06/2022 COMPR EHENS MARTA METAB OLIC PANEL alanine aminotransfe rase 30 U/L 0-35 Not Available [facility] (Lab) [address] [place], [address], 08/06/2022 19:19:40 08/07/19 23 08/06/2022 COMPR EHENS MARTA METAB OLIC PANEL aspartate aminotransfe rase 27 U/L 15-37 Not Available [facility] (Lab) [address] [place], [address], 08/06/2022 19:19:40 08/07/19 23 08/06/2022 COMPR EHENS MARTA METAB OLIC PANEL bilirubin, total 1.10 mg/dL 0.20-1 .30 Not Available [facility] (Lab) [address] [place], [address], 08/06/2022 19:19:40 08/07/19 23 08/06/2022 COMPR EHENS MARTA METAB OLIC PANEL calcium 9.2 mg/dL 8.4-10 .2 Not Available [facility] (Lab) [address] [place], [address], 08/06/2022 19:19:40 08/07/19 23 08/06/2022 COMPR EHENS MARTA METAB OLIC PANEL total protein 7.7 g/dL 6.3-8. 2 Not Available [facility] (Lab) [address] [place], [address], 08/06/2022 19:19:40 08/07/19 23 08/06/2022 COMPR EHENS MARTA METAB OLIC PANEL albumin 4.4 g/dL 3.4-5. 0 Not Available [facility] (Lab) [address] [place], [address], 08/06/2022 19:19:40 08/07/19 23 08/06/2022 COMPR EHENS MARTA METAB OLIC PANEL globulin 3.3 g/dL 2.6-4. 2 Not Available [facility] (Lab) [address] [place], [address], 08/06/2022 19:19:40 08/07/19 23 08/06/2022 COMPR EHENS MARTA METAB OLIC PANEL A/G ratio 1.3 ratio 1.0-2. 0 Not Available [facility] (Lab) [address] [place], [address], 08/06/2022 19:19:40 08/07/19 23 08/06/2022 RHEUM ATOID FACTO R rf <8.6 IU/mL 0.0-11 .9 Not Available [facility] (Lab) [address] [place], [address], 08/06/2022 19:19:42 08/07/19 23 08/06/2022 C REACT MARTA PROTE IN,UL TRA SENS C-reactive protein 0.99 mg/dL 0.0-0. 5 high Not Available [facility] (Lab) [address] [place], [address], 08/06/2022 19:19:44 08/07/19 23 08/06/2022 IRON/ TIBC PANEL total iron binding capacity 350 mcg/d L 265-47 5 Not Available [facility] (Lab) [address] [place], [address], 08/06/2022 19:22:11 08/07/19 23 08/06/2022 IRON/ TIBC PANEL % transferrin saturation 28 % 20-55 Not Available [facility] (Lab) [address] [place], [address], 08/06/2022 19:22:11 08/07/19 23 08/06/2022 IRON/ TIBC PANEL unsaturated iron bind capacity 253 mcg/d L 126-38 2 Not Available [facility] (Lab) [address] [place], [address], 08/06/2022 19:22:11 08/07/19 23 08/06/2022 IRON/ TIBC PANEL iron 97 mcg/d L 42-175 Not Available [facility] (Lab) [address] [place], [address], 08/06/2022 19:22:11 08/07/19 23 08/06/2022 MAXINE TIN ferritin 21 NG/mL 6.24-1 37 Not Available [facility] (Lab) [address] [place], [address], 08/06/2022 19:46:11 08/07/19 23 08/06/2022 SEDIM ENTAT ION RATE erythrocyte sedimentatio n rate 18 mm/HR 0-20 Not Available [facility] (Lab) [address] [place], [address], 08/06/2022 19:29:26 08/07/19 23 08/06/2022 VITAM IN D 25-HY DROXY vd25oh 18.3 NG/mL 30-100 low Vitam in D Statu s: Defic ient: <20 ng/mL Insuf ficie nt: 20-29 ng/mL Suffi cient : 30-10 0 ng/mL Not Available [facility] (Lab) [address] [place], [address], 08/06/2022 19:32:32 08/07/19 23 08/06/2022 TSH W/REF ALEJANDRA FT4 TSH with reflex free T4 1.590 uIU/m L 0.465- 4.680 Not Available [facility] (Lab) [address] [place], [address], 08/06/2022 19:41:48 08/07/19 23 08/06/2022 VITAM IN B12 (SORIN SHAWN ) vb12 557 pg/mL 239-93 1 Not Available [facility] (Lab) [address] [place], [address], 08/06/2022 20:24:10 08/07/19 23 08/06/2022 FOLAT E, SERUM /PLAS MA folate 10.6 NG/mL 2.76-2 0.0 Not Available [facility] (Lab) [address] [place], [address], 08/06/2022 20:24:15 08/07/19 23 08/11/2022 RAÚL BY IFA RFX TITER /SHAY RITO antinuclear antibodies, ifa Positi ve abnormal Negat marta <1:80 Borde rline 1:80 Posit marta >1:80 Perfo rmed at: [facility] Rajani n [address] [facility], [place] [address] Lab Direc tor: Kal mason PhD, Phone : [phone] Not Available [facility] (Lab) [address] [place], [address], 08/11/2022 08:20:01 08/07/19 23 08/11/2022 RAÚL BY IFA RFX TITER /SHAY RITO homogeneous pattern 1:160 high ICAP nomen clatu re: AC-1 Not Available [facility] (Lab) [address] [place], [address], 08/11/2022 08:20:01 08/07/19 23 08/11/2022 RAÚL BY IFA RFX TITER /SHAY RITO speckled pattern 1:160 high ICAP nomen clatu re: AC-2, 4,5,2 9 Not Available [facility] (Lab) [address] [place], [address], 08/11/2022 08:20:01 08/07/19 23 08/11/2022 RAÚL BY IFA RFX TITER /SHAY RITO note: Commen t abnormal . For more infor wali zavala about Hep-2 cell patte rns use ANApa ttern s.org , the offic iacameron valle te for the Inter natio nal Conse nsus on Antin uclea r Antib rosie (RAÚL) Patte rns (ICAP ). ----- ----- ----- ----- ----- ----- ----- ----- ----- ----- ----- ----- A posit marta RAÚL resul t may occur in healt hy indiv idual s (low titer ) or be assoc iated with a varie ty of disea ses. See inter preta tion chart which is not all inclu sive: . Everardo martines Antidilan malhotra Disea se Assoc iatio n ----- ----- - ----- ----- ----- - ----- ----- ----- ----- ----- ---- Homog eneou s DNA(d s,ss) , SLE - High titer s Nucle osome s, Histo gayla Drug- induc ed SLE ----- ----- - ----- ----- ----- - ----- ----- ----- ----- ----- ---- Speck led Sm, ICE SELLER, SCL-7 0, SLE,M CTD,P SS (diff use form) , SS-A/ SS-B Sjogr ens ----- ----- - ----- ----- ----- - ----- ----- ----- ----- ----- ---- Nucle olar SCL-7 0, PM-1/ SCL High titer s Scler oderm a, PM/DM ----- ----- - ----- ----- ----- - ----- ----- ----- ----- ----- ---- Centr omere Centr omere PSS (limi jamar form) w/Cre st syndr ome varia ble ----- ----- - ----- ----- ----- - ----- ----- ----- ----- ----- ---- Nucle ar Dot Sp100 ,p80- coili n Prima ry Bilia ry Cirrh osis ----- ----- - ----- ----- ----- - ----- ----- ----- ----- ----- ---- Nucle ar GP210 , Prima ry Bilia ry Cirrh osis Membr ane shawn A,B,C ----- ----- - ----- ----- ----- - ----- ----- ----- ----- ----- ---- Perfo rmed at: [facility] [address], [place] [id number] Lab Direc tor: Kal mason PhD, Phone : [phone] Not Available [facility] (Lab) [address] [place], [address], 08/11/2022 08:20:01 12/24/19 23 12/23/2022 XR, hand No observ ation record ed. [email or web address] [address], [address], 01/08/2023 09:19:59 12/24/19 23 12/23/2022 XR, wrist No observ ation record ed. [email or web address] [facility] [address] [place], [address], 01/08/2023 09:19:50 12/24/19 23 12/23/2022 XR, foot No observ ation record ed. [email or web address] [facility] [address] [place], [address], 01/08/2023 09:19:19 12/24/19 23 12/23/2022 XR, wrist No observ ation record ed. [email or web address] [facility] [address] [place], [address], 01/08/2023 09:19:08 12/24/19 23 12/23/2022 XR, hand No observ ation record ed. [email or web address] [facility] [address] [place], [address], 01/08/2023 09:18:55 12/24/19 23 12/23/2022 XR, foot No observ ation record ed. [email or web address] [facility] [address] [place], [address], 01/08/2023 09:18:42 01/13/20 24 01/11/2024 US, neck, soft tissu e No observ ation record ed. [facility] [address] [place], [address], 01/16/2024 22:23:53 Result Notes None recorded. Problems Name Problem SNOMED Code Status Onset Date Resolution Date Notes Provider Name and Address Organization Details Recorded Time Irritable bowel syndrome 16010852 Active 2017 Not Available [facility] 3 02:55:22 Asthma 168084785 Active Not Available [facility] 3 02:55:22 Gastroesop hageal reflux disease 396582850 Active 2017 Not Available [facility] 3 02:55:22 Attention deficit hyperactiv ity disorder, predominan tly inattentiv e type 03715043 Active Not Available [facility] 3 02:55:22 Melanocyti c nevus of skin 252823010 Active 2022 Not Available [facility] 3 02:55:22 Hyperlipid emia 82257905 Active Not Available [facility] 3 02:55:22 23954282 Completed 201902/07/2020 Not Available [facility] 3 02:55:22 74674390 Completed 201706/28/2018 Not Available [facility] 3 02:55:22 Attention deficit hyperactiv ity disorder 210042667 Active 2022 NATALIA Gonzalez [address] [facility] [address], [place], [address] , [place] [facility] [employer] [facility] 3 18:02:16 Multiple joint pain 92753457 Active 2022 NATALIA Gonzalez [address], [place], [address] , [employer] 3 08:10:31 Anemia 035210612 Active 2022 Jayesh CamachoNATALIA [address], [place] [address], [place], [address] , [employer] 3 08:17:12 Vitamin D deficiency 54829738 Active 2022 Jayesh YinNATALIA briggs [address], [place] [address], [place], [address] , [employer] 3 12:28:05 Anti-nucle ar factor detected 387510459 Active 2022 Jayesh YinNATALIA briggs [address], [place] [address], [place], [address] , [employer] 3 12:29:53 Systemic lupus erythemato mayito 76914142 Active 2022 LOUIE Shanks [address], [place] [address], [place], [address] , [employer] 3 16:45:47 Mass of neck 244973015 Active 2023 LOUIE Shanks [address] [facility], [place] [address], [place], [address] , [employer] 4 08:09:05 Problem Notes None recorded. Procedures Surgical History Date Name Laterality Status Provider Name and Address Organization Details Recorded Time 3 Hysterectomy , Partial completed Kay Ornelas RN [facility] [employer] 08/06/2022 08:04:10 1 Date of Last Pap Smear completed Not Available [facility] 05/06/2022 02:47:24 ENT Surgery completed Not Available [facility] 05/06/2022 02:47:33 Imaging Results Imaging Date Name Status LastModified by Organiz ation Details LastModified Time 12/23/2022 XR, hand completed [email or web address] [facility] [address] [place], [address], 01/08/2023 09:19:59 12/23/2022 XR, wrist completed [email or web address] [facility] [address], [place], [address], 01/08/2023 09:19:50 12/23/2022 XR, foot completed [email or web address] [facility] [address], [place], [address], 01/08/2023 09:19:19 12/23/2022 XR, wrist completed [email or web address] [facility] [address], [place], [address], 01/08/2023 09:19:08 12/23/2022 XR, hand completed [email or web address] [facility] [address], [place], [address], 01/08/2023 09:18:55 12/23/2022 XR, foot completed [email or web address] [facility] [address], [place], [address], 01/08/2023 09:18:42 01/11/2024 US, neck, soft tissue completed [email or web address] [facility] [address], [place], [address], 01/16/2024 22:23:53 Procedure Notes None recorded. Medical Equipment None Reported. Allergies Allergen ID Allergen Name Allergen Category Reaction Reaction Severity Criticality Documentation Date Start Date Code Code System Note Provider Name and Address Organization Details Recorded Time 4931 Reglan medicatio n nausea moderate Not available 05/06/2022 9230 RxNorm Not Available [employer] 03:04:40 Medications Name Sig Start Date Stop Date Status Note LastModified by Organization Details LastModified Time amoxicillin 500 mg capsule TAKE ONE CAPSULE BY MOUTH FOUR TIMES DAILY active Not Available Not Available No t Available terconazole 0.4 % vaginal cream I 1 APL VAGINALLY QD HS FOR 7 DAYS 03/10 completed Not Available Not Available Not Available prednisone 10 mg tablet 08/06 completed Not Available Not Available Not Available atorvastati n 20 mg tablet TAKE 1 TABLET BY MOUTH EVERY DAY AT BEDTIME active Not Available Not Available No t Available clindamycin HCl 300 mg capsule TK 1 C PO Q 12 H FOR 7 DAYS 03/10 completed Not Available Not Available Not Available azithromyci n 250 mg tablet TAKE 2 TABLETS (500 MG) BY ORAL ROUTE ONCE DAILY FOR 1 DAY THEN 1 TABLET (250 MG) BY ORAL ROUTE ONCE DAILY FOR 4 DAYS 06/13 completed Not Available Not Available Not Available ibuprofen 800 mg tablet TAKE 1 TABLET BY MOUTH THREE TIMES DAILY NEEDED FOR PAIN 10/07 completed Not Available Not Available Not Available fluconazole 150 mg tablet TAKE 1 TABLET BY MOUTH 1 TIME 12/22 completed Not Available Not Available Not Available hydrocodone 5 mg-acetamin ophen 325 mg tablet TAKE 1 TABLET BY MOUTH EVERY 6 HOURS NEEDED FOR PAIN 12/22 completed Not Available Not Available Not Available meloxicam 15 mg tablet TAKE 1 TABLET BY MOUTH DAILY WITH MEAL active Not Available Not Available No t Available promethazin e 12.5 mg tablet TK 1 T PO Q 4 TO 6 H N 06/29 completed PRN Not Available Not Available Not Available prednisone 20 mg tablet TAKE 2 TABLETS BY MOUTH EVERY DAY FOR 5 DAYS 12/22 completed Not Available Not Available Not Available lovastatin 40 mg tablet Take 1 tablet every day by oral route. 06/29 completed Not Available Not Available Not Available Clotrimazol e-7 1 % vaginal cream Insert 1 applicato rful every day by vaginal route at bedtime. active Not Available Not Available No t Available diphenoxyla te-atropine 2.5 mg-0.025 mg tablet 06/29 completed Not Available Not Available Not Available topiramate 25 mg tablet Take 1 tablet every day by oral route for 30 days. 10/07 completed Not Available Not Available Not Available phentermine 37.5 mg tablet TAKE 1 TABLET BY MOUTH EVERY DAY active Not Available Not Available No t Available amoxicillin 500 mg tablet TAKE 1 TABLET BY MOUTH EVERY 12 HOURS FOR 10 DAYS 08/06 completed Not Available Not Available Not Available terconazole 80 mg vaginal suppository UNWRAP AND INSERT 1 SUPPOSITO RY VAGINALLY EVERY DAY AT BEDTIME FOR 3 DAYS 12/22 completed Not Available Not Available Not Available Zofran 4 mg tablet Take 1 tablet every 6 hours by oral route. active Not Available Not Available No t Available oxycodone-a cetaminophe n 5 mg-325 mg tablet TAKE 1 TABLET BY MOUTH EVERY 6 HOURS NEEDED FOR PAIN 10/07 completed Not Available Not Available Not Available hydrocortis one 2.5 % topical cream with perineal applicator APPLY RECTALLY TO THE AFFECTED AREA DAILY NEEDED FOR HEMORRHOI DS 12/22 completed Not Available Not Available Not Available amoxicillin 875 mg tablet 06/29 completed Not Available Not Available Not Available Nortrel 135 (28) 1 mg-35 mcg tablet 06/29 completed Not Available Not Available Not Available dicyclomine 20 mg tablet TAKE 1 TABLET BY MOUTH THREE TIMES DAILY 10/07 completed Not Available Not Available Not Available meclizine 25 mg tablet 06/24 completed Not Available Not Available Not Available benzonatate 100 mg capsule 07/06 completed Not Available Not Available Not Available doxycycline monohydrate 100 mg capsule TAKE 1 CAPSULE BY MOUTH TWICE DAILY 08/06 completed Not Available Not Available Not Available cephalexin 500 mg capsule TK 1 C PO BID FOR 7 DAYS 03/10 completed Not Available Not Available Not Available hyoscyamine sulfate 0.125 mg tablet Take 1 tablet twice a day by oral route for 30 days. active Not Available Not Available No t Available oseltamivir 75 mg capsule 07/06 completed Not Available Not Available Not Available ferrous sulfate 325 mg (65 mg iron) tablet TK 1 T PO QD 03/10 completed Not Available Not Available Not Available buspirone 10 mg tablet Take 1 tablet 3 times a day by oral route for 30 days. active Not Available Not Available No t Available methylpheni date ER 20 mg tablet,exte nded release TAKE 1 TABLET BY MOUTH EVERY DAY 12/22 completed Not Available Not Available Not Available ibuprofen 400 mg tablet active Not Available Not Available Not Available fluoxetine 10 mg capsule Take 1 capsule every day by oral route for 30 days. active Not Available Not Available No t Available omeprazole 20 mg capsule,del ayed release Take 1 capsule every day by oral route. active Not Available Not Available No t Available diclofenac sodium 75 mg tablet,juvenal yed release TAKE 1 TABLET BY MOUTH TWICE DAILY 12/22 completed Not Available Not Available Not Available hydroxyzine HCl 25 mg tablet TAKE 1 TABLET BY MOUTH THREE TIMES DAILY NEEDED 10/07 completed Not Available Not Available Not Available ergocalcife rol (vitamin D2) 1,250 mcg (50,000 unit) capsule TAKE 1 CAPSULE BY MOUTH EVERY WEEK active Not Available Not Available No t Available ibuprofen 600 mg tablet TAKE 1 TABLET BY MOUTH EVERY 6 HOURS NEEDED FOR CRAMPING 10/07 completed Not Available Not Available Not Available methylpredn isolone 4 mg tablets in a dose pack FOLLOW PACKAGE DIRECTION S 12/22 completed Not Available Not Available Not Available albuterol sulfate HFA 90 mcg/actuati on aerosol inhaler INHALE 2 PUFFS FOUR TIMES DAILY NEEDED FOR SHORTNESS OF BREATH OR WHEEZING active Not Available Not Available No t Available ondansetron 4 mg disintegrat ing tablet Take 2 tablets every 12 hours by oral route. 03/29 completed Not Available Not Available Not Available topiramate 100 mg tablet Take 1 tablet twice a day by oral route for 90 days. 10/07 completed Not Available Not Available Not Available fluticasone propionate 50 mcg/actuati on nasal spray,suspe nsion SHAKE LIQUID AND USE 2 SPRAYS IN EACH NOSTRIL DAILY DIRECTED 12/22 completed Not Available Not Available Not Available dicyclomine 10 mg capsule TAKE 1 CAPSULE BY MOUTH THREE TIMES DAILY NEEDED FOR ABDOMINAL PAIN 12/22 completed Not Available Not Available Not Available amoxicillin 875 mg-potassiu m clavulanate 125 mg tablet TAKE 1 TABLET BY MOUTH TWICE DAILY FOR 10 DAYS 08/06 completed Not Available Not Available Not Available methylpheni date ER 27 mg tablet,exte nded release 24 hr TAKE 1 TABLET BY MOUTH EVERY DAY active Not Available Not Available No t Available NuvaRing 0.12 mg-0.015 mg/24 hr vaginal 02/01 completed Not Available Not Available Not Available cyclobenzap rine 5 mg tablet TAKE 1 TABLET BY MOUTH THREE TIMES DAILY 12/22 completed Not Available Not Available Not Available bupropion HCl XL 300 mg 24 hr tablet, extended release TAKE 1 TABLET BY MOUTH EVERY DAY 10/07 completed Not Available Not Available Not Available bupropion HCl XL 150 mg 24 hr tablet, extended release Take 1 tablet every day by oral route for 30 days. 11/01 completed Not Available Not Available Not Available topiramate 50 mg tablet TAKE 1 TABLET BY MOUTH EVERY DAY 10/07 completed Not Available Not Available Not Available mesalamine 1.2 gram tablet,juvenal yed release TAKE 2 TABLETS BY MOUTH DAILY FOR 8 WEEKS active Not Available Not Available No t Available Zyrtec 10 mg capsule Take 1 capsule every day by oral route for 1 day. 06/24 completed Not Available Not Available Not Available Virtussin AC 10 mg-100 mg/5 mL oral liquid Take 10 mL every 4 hours by oral route. 06/29 completed Not Available Not Available Not Available Xulane 150 mcg-35 mcg/24 hr transdermal patch APPLY 1 PATCH TOPICALLY TO THE SKIN WEEKLY 08/06 completed Not Available Not Available Not Available MegaRed [place]-3 Krill Oil 1,000 mg-230 mg-60 mg capsule Take 1 capsule every day by oral route. 12/22 completed Not Available Not Available Not Available Vitals Date Recorded Body height Body mass index (BMI) Body weight Body temperature Heart rate Oxygen saturation Oxygen saturation in Arterial blood by Pulse oximetry Systolic blood pressure Diastolic blood pressure Provider Name and Address Organization Details Last Updated DateTime 3 154.94 cm 32.3 kg/m2 15843.3 g 99.1 [degF] 93 /min 98 % 98 % 120 mm[Hg] 84 mm[Hg] SANDRA Allen [facility] [employer] [facility] 3 08:02:58 Date Recorded Body height Body mass index (BMI) Body weight Body temperature Heart rate Oxygen saturation Oxygen saturation in Arterial blood by Pulse oximetry Systolic blood pressure Diastolic blood pressure Provider Name and Address Organization Details Last Updated DateTime 3 154.94 cm 33.1 kg/m2 35949.6 6 g 99.9 [degF] 91 /min 99 % 99 % 118 mm[Hg] 78 mm[Hg] SANDRA Allen [facility] [employer] [facility] 3 16:28:02 Date Recorded Body height Body mass index (BMI) Body weight Body temperature Heart rate Oxygen saturation Oxygen saturation in Arterial blood by Pulse oximetry Systolic blood pressure Diastolic blood pressure Provider Name and Address Organization Details Last Updated DateTime 3 154.94 cm 33.6 kg/m2 53983.4 4 g 98.4 [degF] 80 /min 100 % 100 % 120 mm[Hg] 78 mm[Hg] Sophia Rushing LPN [employer] [facility] [employer] 3 08:48:38 Date Recorded Body height Body mass index (BMI) Body weight Body temperature Heart rate Oxygen saturation Oxygen saturation in Arterial blood by Pulse oximetry Systolic blood pressure Diastolic blood pressure Provider Name and Address Organization Details Last Updated DateTime 4 154.94 cm 34.2 kg/m2 50785.2 2 g 99 [degF] 69 /min 100 % 100 % 122 mm[Hg] 84 mm[Hg] Rosy Pompa RN [facility] [employer] [facility] 4 08:07:24 Date Recorded Body height Body mass index (BMI) Body weight Body temperature Heart rate Oxygen saturation Oxygen saturation in Arterial blood by Pulse oximetry Systolic blood pressure Diastolic blood pressure Provider Name and Address Organization Details Last Updated DateTime 5 154.94 cm 34.2 kg/m2 43871.2 2 g 98 [degF] 85 /min 98 % 98 % 124 mm[Hg] 70 mm[Hg] Larry Ocampo RN [facility] [employer] 5 08:39:36 Social History Question Answer Notes LastModified by Organizat ion Details LastModified Time Tobacco Smoking Status Never Smoker Not Available [employer] 05/06/2022 02:31:43 What Is Your Level Of Alcohol Consumption? Occasional [id number] Information not available 05/06/2022 What Is Your Level Of Caffeine Consumption? Moderate MIGRATION.[id number] Information not available 05/06/2022 How Much Tobacco Do You Chew? None MIGRATION.[id number] Information not available 05/06/2022 In The 14 Days Before Symptom Onset, Have You Had Close Contact With A Laboratory-confir med COVID-19 While That Case Was Ill? No [id number].[id number] Information not available 05/06/2022 In The 14 Days Before Symptom Onset, Have You Had Close Contact With A Person Who Is Under Investigation For COVID-19 While That Person Was Ill? No [id number] 1056 Information not available 05/06/2022 What Type Of Diet Are You Following? REGULAR MIGRATION.[id number] Information not available 05/06/2022 Which Illicit Or Recreational Drugs Have You Used? None MIGRATION.[id number] Information not available 05/06/2022 Do You Or Have You Ever Used E-cigarettes Or Vape? 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 No MIGRATION.382444 3809 Information not available 05/06/2022 Have You Ever Been Counseled For Unhealthy Alcohol Use? No MIGRATION.735594 0677 Information not available 05/06/2022 Do You Or Have You Ever Used Smokeless Tobacco? Never Used Smokeless Tobacco MIGRATION.[id number] 5023 Information not available 05/06/2022 How Much Tobacco Do You Smoke? No MIGRATION.667808 1667 Information not available 05/06/2022 Do You Feel Stressed (tense, Restless, Nervous, Or Anxious, Or Unable To Sleep At Night)? [email or web address] Information not available 08/06/2022 Do You Use Any Illicit Or Recreational Drugs? No MIGRATION.150250 7481 Information not available 05/06/2022 Do You Use Sunscreen Routinely? Yes MIGRATION.783111 0832 Information not available 05/06/2022 Has Tobacco Cessation Counseling Been Provided? No MIGRATION.604841 8821 Information not available 05/06/2022 How Many Years Have You Smoked Tobacco? 0 MIGRATION.979116 3743 Information not available 05/06/2022 Do You Have Any Dietary Restrictions? No MIGRATION.202234 7289 Information not available 05/06/2022 Do You Or Have You Ever Used Any Other Forms Of Tobacco Or Nicotine? No MIGRATION.348236 1531 Information not available 05/06/2022 Sex: Unknown Functional Status Question Answer Note LastModified by Organizat ion Details LastModified Time What is your exercise level? Occasional [id number] 26 Information not available 05/06/2022 Mental Status None recorded. Family History Relationship Description Onset Age of this Age Resolved Age Notes LastModified by Organization Details LastModified Time Paternal Grandfather Myocardial infarction [id number] Not available 05/06/2022 02:47:36 Maternal Grandfather Cerebrovascu lar accident MIGRATION.027 [id number] Not available 05/06/2022 02:47:36 Maternal Grandmother Cerebrovascu lar accident MIGRATION.447 [id number] Not available 05/06/2022 02:47:36 Maternal Grandmother Malignant tumor of breast MIGRATION.918 [id number] Not available 05/06/2022 02:47:36 Paternal Grandmother Lupus erythematosu s [email or web address] Not available 08/06 08:12:18 Mother Parkinson's disease MIGRATION.691 [id number] Not available 05/06/2022 02:47:36 Mother Lupus erythematosu s [id number] Not available 08/06 08:12:35 Medical History Condition Response FEMALE PROBLEMS / INFECTIONS Y ANEMIA/BLOOD DISORDER Y HIGH CHOLESTEROL / HYPERLIPIDEMIA Y ASTHMA Y Gynecological History Statement/Question Response Abnormal Pap N Flow Moderate Date of LMP 09/18/2021 Dislike of Light during Menstrual Headac he Y Date of Last Pap Duration of Flow (days) 8 Current Control Method Hysterectom y Age at Menarche 11 Breast Problems no How many live births 3 Frequency of Cycle (Q days) 8 Menses Monthly N Date of Last Pap Smear 08/19/2020 Discharge no Obstetrics History GPAL:G 3 P 3 0 0 3 Type Value Full Term 3 Living 3 Total 3 Past Encounters Encounter ID Performer Location Encounter Start Date Encounter Closed Date Diagnosis/Indication Diagnosis SNOMED-CT Code Diagnosis ICD10 Code Diagnosis Note [id number] [facility] [address] [place] [address] 08/15/2020 00:00:00 08/15/2020 09:53:26 [id number] _ATHENA_M IGRATION_ DEFAULT_1 _1 , 08/19/2020 00:00:00 08/19/2020 09:32:54 [id number] [facility] Primary [facility] [address] [facility] [place] [place] [address] 08/30/2020 00:00:00 08/30/2020 14:07:53 [id number] [facility] [address] [place] [address] 10/04/2020 00:00:00 10/04/2020 08:40:11 [id number] [facility] [place] [address] [facility] [address] [place] [address] 11/01/2020 00:00:00 11/01/2020 14:05:52 [id number] [facility] [place] [address] [facility] [address] [place] [address] 11/21/2020 00:00:00 11/21/2020 21:56:57 [id number] [facility] [place] [facility] [address] [place] [address] 01/09/2021 00:00:00 01/09/2021 09:18:17 [id number] [facility] [place] [address] [facility] [address] [place] [address] 09/25/2021 00:00:00 09/25/2021 11:39:40 [id number] [facility] [place] ry[place] [address] [place] [address] [address] [place] [address] 10/23/2021 00:00:00 10/23/2021 16:24:06 [id number] [facility] Cari ryane [address] [place] [address] [address] [place] [address] 05/05/2022 00:00:00 05/05/2022 09:54:48 [id number] NATALIA Gonzalez [facility] [place] [address] [place] [address] [address] [place] [address] 08/06/2022 07:57:43 08/06/2022 08:35:27 Medication monitoring 214171321 Z51.81 Stable with current dose of methylphen idatePt denies any lending, selling, or borrowing of medication s. Denies any cp, sob, palpitatio ns, or unusual weight loss.Revie wed controlled substance agreement requiremen ts. Refill given.[place] PDMP checkedDue for UDSMethylp henidate ER 20mg dailyRTO 3/6 months for routine f/u appt. Multiple joint pain 3567 8005 M25.50 New problemPt reports family hx of lupus (mother, PGM).No improvemen t with otc pain relieversW ill check autoimmune panel and evaluate for anemias.En couraged pt to exercise regularly, try to avoid being sedentary for too long at work. Uterus absent 260872311 Z90.710 New problemPar farzana judd (05/14/22) still has both ovaries Anemia 992250097 D64.9 ChronicWil l check labs as anemia may cause chronic/re current joint pain. Family his tory of Cardiovascular disease 418743114 Z82.49 Hyperlipidemia 77961210 E78.5 Chronic, current status unknown.to veronica 308, trigs 153, ldl 228 (08/15/20)D iscussed need for regular exercise, increase intake of water/vege tables/fib er. Decrease the amount of greasy/fat ty/fried foods in diet. Consider/s tart taking a daily fish oil supplement .Continue statin therapy as directed. [id number] LOUIE Shanks [facility] Primary Care [address] [place] [address] 10/22/2022 16:20:11 10/22/2022 17:33:26 Multiple joint pain 79024536 M25.50 Has not had any relief with diclofenac Will try meloxicam and short course of steroids [id number] LOUIE Shanks [facility] Primary Care [address] [place] [address] 01/07/2023 08:29:42 01/07/2023 10:32:37 Multiple joint pain 37365471 M25.50 -pain to hands/neck /back continues- ROM and strength are intact with pain-melox icam did seem to help her, kept her pain down to around a 3/10-did f/u with rheumatolg y-no new diagnosis/ medication , due to f/u in 3-refill meloxicam given Has not had any relief with diclofenac Will try meloxicam and short course of steroids Attention deficit hyperactivity disorder 877686908 F90.9 -notes that the methylphen idate 20mg is not helping as much as it used to-trouble focusing at work-will increase to 27mgER-jacinda l date 01-23-23-f /u in 1 month [id number] LOUIE Shanks [facility] Primary Care [facility] [address] [facility] [address] [place] [address] 12/23/2023 08:01:02 12/23/2023 08:32:29 Mass of neck 188802929 R22.1 right side of neck, no painhas been there since August3change s in size at timesUS ordered Vitamin D deficiency 347 85620 E55.9 Multiple joint pain 3567 8005 M25.50 Hyperlipidemia 58751919 E78.5 Renewal of prescription 977091603 Z76.0 Long-term drug therapy 693205269 Z79.891 Pt denies any lending, selling, or borrowing of medication s. Denies any cp, sob, palpitatio ns, or unusual weight loss.Revie wed controlled substance agreement requiremen ts. Refill given.[place] checked today. [id number] LOUIE Potter [facility] Primary Care [facility] [address] [facility] [address] [place] [address] 03/23/2024 08:26:44 03/23/2024 08:52:41 Attention deficit hyperactivity disorder 668295524 F90.9 Multiple joint pain 3567 8005 M25.50 Mass of neck 853145176 R 22.1 Health Concerns Section Related Observation LastModified by Organization Detai ls LastModified Time None Recorded Concern Status LastModified by Organization Details LastModified Time None Recorded Advance Directives Directive None Recorded Payers Encounter Date Sequence Insurance Name Policy Number Policy Cooper Covered Member ID Cooper Member ID Guarantor Name 08/06/2022 1 [place] [id number] F Clarice N Chavours [id number] Clarice N Chavours 10/22/2022 1 [place] [id number] F Clarice N Chavours [id number] Clarice N Chavours 01/07/2023 1 [place] [id number] F Clarice N Chavours [id number] Clarice N Chavours 12/23/2023 1 [place] [id number] F Clarice Jerez [id number] Clarice Jerez 03/23/2024 1 [place] [id number] F Clarice Jerez [id number] 62 Clarice Jerez Notes Date Note Type Note Provider Name and Address Organization Details Recorded Time 08/06/2022 text/html 1. Pt in office for controlled medication check. Pt denies any problems or concerns with meds. Pt states she takes only as directed. Denies any lending, selling, or borrowing of medication.2. Pt reports she has stopped taking all meds except for the atorvastatin and methylphenidate.3. Pt c/o having a lot joint pain that makes it difficult to walk. States there is pain in her feet. Pain in her hips and thighs. 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 Pt states she mostly wears tennis shoes. Pt denies any recent falls or injuries. Pt states she takes ibuprofen for the pain, but doesn't really get any relief. Pt states she also gets an itchy rash across her chest with the pain. Pt states she is worried b/c mother and paternal grandmother have lupus. Pt also c/o having severe night sweats since [facility] (05/14/22).4. Pt states she is worried about cardiac health. States several family members have substantial heart issues. Reports father had [place] over the weekend and mother had [place] in recent past. Pt states she wants to see a harnessmaker b/c she has had high cholesterol issues since she was a teenager and is worried that she could be at risk for a heart attach herself. Jayesh Camacho, INTELLIGENT SYSTEMS ENGINEER [address] [facility], [facility] [address], [place], [address], [facility] [employer] 08/06/2022 11:12:29 10/22/2022 text/html Pt is here for f /u on labs. Has been taking vitamin D supplement once per week. Family hx of lupus. Joint pain- Was prescribed diclofenac and it has not been helping at all so far. Takes BID as prescribed Has not followed up with her cardiology referral yet-had to reschedule Rheumatology appt set up for December 06. Pt in office for controlled medication check. Pt denies any problems or concerns with meds. Pt states she takes only as directed. Denies any lending, selling, or borrowing of medication.2. Pt reports she has stopped taking all meds except for the atorvastatin and methylphenidate.3. Pt c/o having a lot joint pain that makes it difficult to walk. States there is pain in her feet. Pain in her hips and thighs. 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 Pt states she mostly wears tennis shoes. Pt denies any recent falls or injuries. Pt states she takes ibuprofen for the pain, but doesn't really get any relief. Pt states she also gets an itchy rash across her chest with the pain. Pt states she is worried b/c mother and paternal grandmother have lupus. Pt also c/o having severe night sweats since [facility] (05/14/22).4. Pt states she is worried about cardiac health. States several family members have substantial heart issues. Reports father had [place] over the weekend and mother had [place] in recent past. Pt states she wants to see a harnessmaker b/c she has had high cholesterol issues since she was a teenager and is worried that she could be at risk for a heart attach herself. LOUIE Shanks [address] [place] [address], [place], [address], [employer] 10/22/2022 17:57:47 01/07/2023 text/html Pt is here for m ed f/u LOUIE Shanks [address], [facility] [address], [place], [address], [employer] 01/07/2023 09:05:14 12/23/2023 text/html pt is here for f/u LOUIE Butt [address], [facility] [address], [place], [address], [employer] 12/24/2023 08:43:39 03/23/2024 text/html Patient is a 28 year old female that presents to the office for routine follow up. Patient has not been taking the Methylphenidate due to cost, would like to restart medication for ADHD. Patient is also requesting to have FMLA paperwork renewed--has been on FMLA for about one year joint pain due to autoimmune issues. Vickie Huynh, INTELLIGENT SYSTEMS ENGINEER-C [address] [facility], [facility] [address], [place], [address], [place] [facility] [employer] [facility] 03/23/2024 13:16:43 OBGyn Episode No OBEpisode recorded.
--- OUTSIDE RECORDS SUMMARY | 2024-03-30 10:01 | XMS_ITS | Clinical Summary ---
Author Organization [facility] [address] Address [address] [place] [address] Phone Care Team Providers Care Staff Nurse Name Role Phone Jayesh Camacho NP Primary Care Provider [phone] Allergies Active Allergy Reactions Criticality Noted Date Comments Metoclopramide Anxiety Low 06/10/2019 Medications albuterol HFA (ProAir HFA) 90 mcg/actuation inhalerIndicati ons:Cough Inhale 2 puffs every 4 (four) hours as needed for wheezing or shortness of breath 8.5 g 0 Active benzonatate (TESSALON) 100 mg capsuleIndicati ons:Cough Take 1 capsule (100 mg total) by mouth 3 (three) times a day as needed for cough 45 capsule 0 Active ondansetron (ZOFRAN) 4 mg tablet Take 1 tablet (4 mg total) by mouth every 6 (six) hours as needed for nausea 15 tablet 0 Active ibuprofen (ADVIL,MOTRIN) 400 mg tablet Take 1 tablet (400 mg total) by mouth every 6 (six) hours as needed for pain 20 tablet 1 Active fluticasone propionate (FLONASE) 50 mcg/actuation nasal spray Administer 1 spray into affected nostril(s) daily 9 Active norelgestromin- ethin.estradioL (ORTHO EVRA) 150-35 mcg/24 hr Xulane 150 mcg-35 mcg/24 hr transdermal patch APPLY 1 PATCH EXTERNALLY TO THE SKIN EVERY WEEK Active buPROPion XL (WELLBUTRIN XL) 300 mg 24 hr tablet Take 300 mg by mouth daily Active topiramate (TOPAMAX) 50 mg tablet Take 50 mg by mouth 2 (two) times a day Active hydrOXYzine (ATARAX) 25 mg tablet Take 25 mg by mouth 3 (three) times a day as needed for itching Active atorvastatin (LIPITOR) 20 mg tablet Take 20 mg by mouth daily Active dicyclomine (BENTYL) 10 mg capsule Take 1-2 pills up to 4 times daily as needed for abdominal cramping 60 capsule [address] (PROTONIX) 20 mg EC tabletIndicatio ns:Treatment of Non-Bleeding Gastric Disorder Take 1 tablet (20 mg total) by mouth daily 20 tablet 2 Active Active Problems Problem Noted Date Diagnosed Date Irritable bowel syndrome without diarrhea 2021 Upper abdominal pain 06/11/2021 Hypercholesterolemia 12/14/2014 Overview (06/12/2016): Elevated cholesterol Surgical History Surgery Date Site/Laterality Comments OTHER SURGICAL HISTORY Ear tubes - childhood OTHER SURGICAL HISTORY Asthma, mild intermitent: Albuterol PRN - 1 q 2 months OTHER SURGICAL HISTORY 2016 : Medical History Medical History Date Comments Hx Other Medical Asthma, mild in termitent; Comments: RED 08/13/2015 - Hx Other Medical ; Comm ents: SROM, labor. . 1' and right labial lacs.; Outcome: 39W1D week 6lb(s) 15 oz Male Asthma Family History Medical History Relation Name Comments Stroke Maternal Grandfather Stroke; Breast cancer Maternal Grandmother Cancer , breast; Hypertension Maternal Grandmother Hyperte nsion; Stroke Maternal Grandmother Stroke; Lupus Mother Lupus erythemat osus; Other Mother Pacemaker; Parkinsonism Mother Parkinson's dis ease; Heart attack Paternal Grandfather Myocard ial infarction; Relation Name Status Comments Maternal Grandfather Maternal Grandmother Mother Paternal Grandfather Social History Tobacco Use Types Packs/Day Years Used Date Smoking Tobacco: Never Smokeless Tobacco: Never Alcohol Use Standard Drinks/Week Comments No 0 (1 standard drink = 0.6 oz pur e alcohol) AUDIT-C Answer Date Recorded Q1: How often do you have a drink containing alc ohol? 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 Not on file Not on file Obstetrics History Para Term AB IAB SAB Ectopic Multiple Livin g Live Births 3 1 1 0 0 1 Date Outcome GA Total Labor Labor/2nd/3rd Weight Sex Type Anes PTL Radha A1 A5 Name Clin Term Last Filed Vital Signs Vital Sign Reading Time Taken Comments Blood Pressure 122/74 10/06/2021 7:15 PM CDT Pulse 105 10/06/2021 7:15 PM CDT Temperature 36.3 ??C (97.4 ??F) 10/06/2021 7:15 PM CD T Respiratory Rate 20 10/06/2021 7:15 PM CDT Oxygen Saturation 97% 10/06/2021 7:15 PM CDT Inhaled Oxygen Concentration - - Weight 72.3 kg (159 lb 6.4 oz) 10/06/2021 7:15 P M CDT Height 154.9 cm (5' 1 ) 10/06/2021 7:15 PM CDT Body Mass Index 30.12 10/06/2021 7:15 PM CDT Plan of Treatment Health Maintenance Due Date Last Done Comments Depression Screening 1995 Hepatitis C Screening 1995 Pneumococcal vaccine <65 (1 of 2 - PCV) 09/29/2001 Varicella Vaccines (1 of 2 - 13+ 2-dose series) 09/29/2008 Hepatitis B Screening 09/29/2013 Cervical Cancer Screening 05/28/2018 05/28/2017 Regular Well Visit/Exam 18-64 05/28/2018 05/28/2017 Influenza Vaccine (#1) 2023 DTaP/Tdap/Td Vaccine (3 - Td or Tdap) 01/24/2030 01/25/2020, 03/17/2016 HPV Vaccines Aged Out No longer eligi ble based on patient's age to complete this topic Procedures Procedure Name Priority Date/Time Associated Diagnosis Comments THINPREP TIS PAP REFLEX HPV MRNA E6/E7, CHLAMYDIA/N.GONORRH OEAE Routine 05/28/2017 3:17 PM CDT Routine cervical smear Screening examination for venereal disease from Last 3 Months or Most Recently Relevant to Health Maintenance Results * THINPREP TIS PAP REFLEX HPV mRNA E6/E7, CHLAMYDIA/N.GONORRHOEAE (05/28/2017 3:17 PM CDT) Report status CANCELED [facility] Comment:Result canceled by t he ancillary CLINICAL INFORMATION: [facility] Comment:Information not prov ided LMP 05/21/17 [facility] Previous Pap NONE GIVEN [facility] Prev. Bx NONE GIVEN [facility] SOURCE: [facility] Comment:Cervix, Endocervix Pap, specimen adequacy [facility] Comment: Specimen processed and examined, but unsatisfactory for evaluation due to an insufficient number of squamous cells. Pap, general categorization CANCELED [facility] Comment:Result canceled by t james ancillary HPV interp [facility] Comment: Unable to provide interpretation due to unsatisfactory specimen adequacy. Infection: CANCELED [facility] Comment:Result canceled by t he ancillary COMMENTS [facility] Comment: This case could not be evaluated with computer assisted technology. The slide was manually screened according to routine procedures. Benefits Administrator [facility] - Comment: HUDSON PORRAS(ASCP) CT screening location: [place] [address] [place] [address] Review manager of marketing [facility] - Comment: HUDSON LUCAS(ASCP) CT screening location: [place] [address] [address] [place] [facility] Pathologist CANCELED [facility] Comment:Result canceled by t james ancillary Comment [facility] Comment: EXPLANATORY NOTE: The Pap is a screening test for cervical cancer. It is not a diagnostic test and is subject to false negative and false positive results. It is most reliable when a satisfactory sample, regularly obtained, is submitted with relevant clinical findings and history, and when the Pap result is evaluated along with historic and current clinical information. C. trachomatis RNA NOT DETECTED NOT DETECTED [facility] N. gonorrhoeae RNA NOT DETECTED NOT DETECTED [facility] Comment [facility] Comment: This test was performed using the APTBlueKite COMBO2 Assay ([employer] The analytical performance characteristics of this assay, when used to test SurePath specimens have been determined by [email or web address]. ?? Fluid 05/28/2017 3:17 PM CDT 05/31/2017 5:08 AM CDT Narrative Resulting Agency Comment Performing Organization Information: ?Site ID: ?Name: [email or web address] ?Address: [facility] [address] [place] [address] ?Director: Jb García MD Eloise Irby MD LAB PATHOLOGY ORDERAB LES Final Result [facility] - [place] from Last 3 Months or Most Recently Relevant to Health Maintenance Insurance [employer] [facility] Care Teams Staff Nurse Relationship Specialty Start Date End Date Jayesh Camacho NP PCP - General 12/14/16
--- OUTSIDE RECORDS SUMMARY | 2024-03-30 10:01 | XMS_ITS | Referral Summary ---
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 Bx NONE GIVEN [facility] SOURCE: [facility] Comment:Cervix, Endocervix Pap, specimen adequacy [facility] Comment: Specimen processed and examined, but unsatisfactory for evaluation due to an insufficient number of squamous cells. Pap, general categorization [facility] Comment:Result canceled by yoni ramirez ancillary HPV interp [facility] Comment: Unable to provide interpretation due to unsatisfactory specimen adequacy. Infection: CANCELED [facility] Comment:Result canceled by yoni ramirez ancillary COMMENTS [facility] Comment: This case could not be evaluated with computer assisted technology. The slide was manually screened according to routine procedures. Tennis Professional [facility] - Comment: MLK, CT(ASCP) CT screening location: [place] [address] [address] [place] [id number] Review security patrol officer [facility] - Comment: LANCE, CT(ASCP) CT screening location: [place] [address] [address] [place] [id number] Pathologist [facility] Comment:Result canceled by yoni ramirez ancillary Comment [facility] Comment: [...] NOT DETECTED NOT DETECTED [facility] - N. gonorrhoeae RNA NOT DETECTED NOT DETECTED [facility] - Comment [facility] - Comment: This test was performed using the APTIMA COMBO2 Assay ([employer] The analytical performance characteristics of this assay, when used to test SurePath specimens have been determined by [employer]. ?? Fluid 05/28/2017 3:17 PM CDT 05/31/2017 5:08 AM CDT Narrative Resulting Agency Comment Performing Organization Information: ?Site ID: ?Name: [facility] ?Address: [facility] [address] ?Director: Jb García MD Eloise Irby MD LAB PATHOLOGY ORDERAB LES Final Result [facility] - [place], [place] from Last 3 Months or Most Recently Relevant to Health Maintenance Insurance [employer] OOS [facility] CHOICE PLUS Care Teams Stars Specialist Relationship Specialty Start Date End Date Jayesh Camacho NP [facility] - General 12/14/16
--- OUTSIDE RECORDS SUMMARY | 2024-03-30 10:02 | XMS_ITS | CONTINUITY OF CARE DOCUMENT ---
Author Name alferd simon Address Unknown Organization [facility] Office Address [address] [place] [address] Phone [phone] Care Team Providers Care Grease Remover Name Role Phone Gregory Olivas MD Unavailable ANGELITO TYSON Unavailable [phone] INSURANCE PROVIDERS Payer name Policy type / Coverage type [place] [employer] party ID [facility] [id number]
== END 2024-03-26 08:40 | disposition home or self-care (01) ==
PROVIDERS: Emergency Provider Nurse Practitioner Family
DX: J10.1 Influenza due to other identified influenza virus with other respiratory manifestations (principal); Z20.822 Contact with and (suspected) exposure to COVID-19; E78.00 Pure hypercholesterolemia, unspecified; J45.909 Unspecified asthma, uncomplicated; E66.9 Obesity, unspecified; Z68.34 Body mass index [BMI] 34.0-34.9, adult
CPT/HCPCS: 87426; 87804; 99212; G0463

== ENCOUNTER 2024-12-14 08:04 | Emergency (ER) | payer BC, SELFPAY ==
--- NOTE | 2024-12-14 08:06 | ED.EXTPRO ---
HPI - Extremity Problem General Chief complaint: Neck Pain/Injury Stated complaint: Neck / shoulder pain right side Time Seen by Provider: 12/14/24 08:16 Source: patient, RN notes reviewed and old records reviewed Mode of arrival: ambulatory Limitations: no limitations History of Present Illness HPI Narrative: 29-year-old female presents to the [facility] with complaints of right lateral neck and right posterior shoulder pain. Denies trauma. Patient states that she woke up this morning, stretched and felt a pop, started having discomfort in the right side can to right shoulder. Has taken Tylenol. Denies numbness or tingling. Able to shrug shoulders. Decreased range of motion of the right shoulder secondary to pain. No erythema, ecchymosis or rashes noted Onset (ago): minute(s) Pain Consistency: constant Related Data Home Medications ?Medication ?Instructions ?Recorded ?Confirmed ?Last Taken ?Type ergocalciferol (vitamin D2) 1,250 1,250 mcg PO WEEKLY 09/24/22 07/28/24 09/13/23 History mcg (50,000 unit) capsule methylphenidate HCl 20 mg 27 mg PO DAILY 09/24/22 07/28/24 09/13/23 History tablet,extended release meloxicam 15 mg tablet 15 mg PO DAILY 02/08/23 07/28/24 09/13/23 History methimazole 5 mg tablet mg 12/14/24 Unknown History Allergies Allergy/AdvReac Type Severity Reaction Status Date / Time metoclopramide AdvReac Intermediate Confusion,H Verified 12/14/24 08:27 ALLUCINATIShaheen SCHULTE Review of Systems Review of Systems: All systems reviewed & are unremarkable except as noted in HPI and below Constitutional: Constitutional: Reports no additional constitutional complaints ENT: Reports system reviewed and no additional complaints, except as documented Cardiovascular: Cardiovascular: Reports no additional cardiovascular complaints, Denies chest pain and Denies dyspnea Respiratory: Respiratory: Reports no additional respiratory complaints, Denies chest congestion, Denies cough and Denies dyspnea Musculoskeletal: Musculoskeletal: Reports as per HPI, Reports arthralgias and Reports neck pain Integumentary/Breasts: Skin/Breast: Reports system reviewed and no additional complaints, except as [facility]u [facility] Past Medical History Medical History Rectal bleeding Undifferentiated connective tissue disease Encounter for screening examination for sexually transmitted disease Anxiety Anemia IBS (irritable bowel syndrome) Elevated cholesterol Obesity (BMI 30-39.9) Asthma Surgical History Surgical History Hx of hemorrhoidectomy Exam under anesthesia, external hemorrhoidectomy involving left lateral and right anterior positions 06/14/23 H/O: hysterectomy (05/14/22) Robotic assisted total laparoscopic hysterectomy with bilateral salpingectomy/ uterine bleeding History of hysteroscopy (04/09/22) Hscope D&C/ diagnostic laparoscopy History of placement of ear tubes as a child Family History Family History Grandparent Acute myocardial infarction paternal grandfather Cerebrovascular accident maternal grandfather maternal grandmother Breast cancer maternal grandmother Mother Lupus erythematosus Parkinsons disease Father Acute myocardial infarction Other No significant family history Social History Social History Smoking status: Never smoker Second hand tobacco smoke exposure: No Alcohol intake: former Substance use: former Substance use type: marijuana Last use: 5 YRS AGO Do You Feel Safe in your Home?: Yes Lack of Transportation: No Lack of Food: Never True Current Housing: I Have Housing Concerned About Future Housing: No Difficulty Paying Gas/Electric Bills: No Difficulty Paying for Meds: No Currently Unemployed: No Education: High School Diploma/GED Difficulty w/ Childcare or Family Care: No Living arrangements: with family Additional living arrangements comments: Occupation/Education: occupation Additional occupation/education comments: [employer] Gender identity (if verbalized by the patient): Female Sexual Orientation (if Verbalized by the Patient): Straight or Heterosexual Spiritual care concerns: No Comments At the time of my signature, I reviewed and agree with the nursing past medical, surgical, social, and family history. There is no relevant family history pertinent to the patient complaint. Exam Const: General: cooperative, no acute distress, well developed, alert, uncomfortable and well nourished Nutritional Appearance: well nourished Orientation/consciousness: patient oriented x3 Limitations: no limitations HENMT: Head: normal to inspection Eyes: General: appearance normal, both eyes and all related structures Alignment and Position: alignment normal Neck: Neck: normal visual inspection, no lymphadenopathy, no meningeal signs, trachea midline, no anterior neck swelling, no midline deformity and tender (Right lateral) Chest: Chest palpation & inspection: normal inspection of the chest Resp: Effort & Inspection: normal respiratory effort and able to speak in complete sentences Cardio: Rate: regular rate Back/Spine/Pelvis: Back: no CVA tenderness, No mass, No erythema, No warmth, No ecchymosis and back tenderness Cervical Spine: cervical muscular tenderness (right), pain with cervical ROM, No Cervical spine scars present, No Cervical spine tenderness, No step off deformity and cervical ROM abnormal (pain right lateral ) Thoracic/Lumbar Spine: paraspinal muscle tenderness on the right in the upper thoracic (above scapula), No thoracic spinal tenderness and No lumbar spinal tenderness Skin: General skin exam: normal color and no rashes or lesions noted Neuro: General: patient oriented x3, gait normal, moves all extremities and no meningeal signs Cognition (Neuro): normal cognition Speech: normal speech Gait exam (Neuro): Normal gait present Extrem: General: normal to inspection, full ROM, capillary refill normal and normal gait Psych: Appearance: grossly normal and well kempt Mental Status: mental status grossly normal Speech and movement: Normal speech and movement present and Clear speech present Affect: normal affect Attitude: cooperative Course Course Level of Care: Express Care Visit Vital Signs Vital signs: Vital Signs Temperature 97.5 F L 12/14/24 08:19 Pulse Rate 81 12/14/24 08:19 Respiratory Rate 20 12/14/24 08:19 Blood Pressure 124/85 12/14/24 08:19 Pulse Oximetry 100 12/14/24 08:19 Oxygen Delivery Room Air 12/14/24 08:19 Temperature 97.5 F L 12/14/24 08:19 Pulse Rate 81 12/14/24 08:19 Respiratory Rate 20 12/14/24 08:19 Blood Pressure 124/85 12/14/24 08:19 Pulse Oximetry 100 12/14/24 08:19 Oxygen Delivery Room Air 12/14/24 08:19 Reviewed MDM - Extremity (Nontraumatic) MDM Narrative Medical decision making narrative: Patient sitting in exam room. Patient is nontoxic, vitals are stable. Patient presents with right lateral neck pain and upper back pain since waking up and stretching just prior to arrival. Did take a Tylenol. Patient with no red flag symptoms. No tenderness of bony prominences. No trauma. Patient is appropriate for outpatient treatment with close follow-up Discharge instructions reviewed with patient, as well as provided in writing per nursing staff. The instructions also include specific and strict return/GO TO THE ER as well as f/u information. All questions have been answered, and the patient deny any further questions with discharge and discharge plan. Some parts of this dictation were generated by voice recognition software and may contain typographical and/or grammatical inaccuracies. Differential Diagnosis Differential diagnosis: Likely other (Sprain, strain, radiculopathy) Critical Care Time Critical Care Time Critical Care Time: No Discharge Plan Discharge Clinical Impression: Muscle strain Patient Disposition: Home Condition: Stable Instructions: Antibiotic Form, Muscle Strain (ED), Acute Neck Pain (ED) Additional Instructions: Take ibuprofen as directed to decrease inflammation and to help pain. Do not take ibuprofen if you do take your meloxicam. Take Baclofen (muscle relaxer) as directed. Do not drink, drive, operate machinery, or do anything dangerous while taking this medication Exercise:Combine aerobic exercise, like walking or swimming, with specific exercises to keep the muscles in your back and abdomen strong and flexible. Proper Lifting:Be sure to lift heavy items with your legs, not your back. Do not bend over to pick something up. Keep your back straight and bend at your knees. Weight:Maintain a healthy weight. Being overweight puts added stress on your lower back. Avoid Smoking:Both the smoke and the nicotine cause your spine to age faster than normal. Proper Posture:Good posture is important for avoiding future problems. A therapist can teach you how to safely stand, sit, and lift. Use warm moist heat to help with pain. Using topical such as Biofreeze, Ascencion-Burris or Aspercreme can also help Follow up with Primary provider in 2-3 days, This may become a chronic condition and they will be the one to help manage your pain and order additional testing. Go to the nearest ER if you develop problems with bladder/bowel function, weakness or loss of feeling in one or both of your legs. Patient Language: Telugu Prescriptions: New baclofen 10 mg tablet 10 mg PO TID PRN (Reason: muscle pain) Qty: 10 0RF ibuprofen 600 mg tablet 600 mg PO TID PRN (Reason: fever or pain) Qty: 30 0RF No Action methimazole 5 mg tablet meloxicam 15 mg tablet 15 mg PO DAILY methylphenidate HCl 20 mg tablet extended release 27 mg PO DAILY ergocalciferol (vitamin D2) 1,250 mcg (50,000 unit) capsule 1,250 mcg PO WEEKLY Rx Instructions: WEDNESDAY Follow-up/Referrals: UNKNOWN,DOCTOR [Non-Staff] Time of Disposition: 08:26
[2024-12-14 08:19] VITALS: BP 124/85; PULSE 81; RESP 20; TEMP 36.4; O2SAT 100
== END 2024-12-14 08:30 | disposition home or self-care (01) ==
PROVIDERS: Emergency Provider Nurse Practitioner; PCP Nurse Practitioner Family
DX: S16.1XXA Strain of muscle, fascia and tendon at neck level, initial encounter (principal); X50.9XXA Other and unspecified overexertion or strenuous movements or postures, initial encounter; J45.909 Unspecified asthma, uncomplicated; E66.9 Obesity, unspecified; Z68.29 Body mass index [BMI] 29.0-29.9, adult
CPT/HCPCS: 99213; G0463